=== PATIENT | female | born 2000 | race Caucasian/White ===

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

== ENCOUNTER → 2020-01-05 08:03 | Outpatient (BNVA) | payer MEDICAID, SELFPAY | PROVIDERS: PCP Nurse Practitioner Family; Visit Provider Obstetrics & Gynecology | DX: O24.919 Unspecified diabetes mellitus in pregnancy, unspecified trimester (principal) | CPT/HCPCS: 76816; 76819; 81000 ==

== ENCOUNTER → 2020-01-12 13:39 | Outpatient (BNVA) | payer MEDICAID, SELFPAY | PROVIDERS: PCP Nurse Practitioner Family; Visit Provider Obstetrics & Gynecology | DX: O24.419 Gestational diabetes mellitus in pregnancy, unspecified control (principal) | CPT/HCPCS: 81000 ==

== ENCOUNTER → 2020-01-19 09:36 | Outpatient (BNVA) | payer MEDICAID, SELFPAY | PROVIDERS: PCP Nurse Practitioner Family; Visit Provider Obstetrics & Gynecology | DX: O09.893 Supervision of other high risk pregnancies, third trimester (principal); A74.9 Chlamydial infection, unspecified; O98.813 Other maternal infectious and parasitic diseases complicating pregnancy, third trimester; N89.8 Other specified noninflammatory disorders of vagina | CPT/HCPCS: 83986; 84315; 87081; 87210; 87491; 87591 ==

== ENCOUNTER 2020-01-23 19:08 | Outpatient (CLI) | payer MEDICAID, SELFPAY ==
[2020-01-23 19:20] VITALS: RESP 16; TEMP 37.2
[2020-01-23 19:24] VITALS: BP 148/70; PULSE 116
[2020-01-23 19:30] VITALS: BMI 28.7
[2020-01-23 20:45] VITALS: BP 136/85; PULSE 79
[2020-01-23 23:48] VITALS: RESP 16
[2020-01-23] MEDS: morphine 4 mg/mL SDV 1 mL 8 MG IM (23:48)
[2020-01-23] MEDS: promethazine 25 mg/mL SDV 1 mL IM (23:49)
[2020-01-24 07:00] VITALS: RESP 16; TEMP 36.7
[2020-01-24 07:57] VITALS: RESP 18; TEMP 37.1
[2020-01-24 08:00] VITALS: RESP 18; TEMP 36.7
== END 2020-01-24 07:56 | disposition home or self-care (01) ==
LOC: OPOB 19:09 → OBGYN 19:11
PROVIDERS: PCP Nurse Practitioner Family; Visit Provider Obstetrics & Gynecology
DX: O26.899 Other specified pregnancy related conditions, unspecified trimester (principal); Z3A.00 Weeks of gestation of pregnancy not specified; R10.9 Unspecified abdominal pain
CPT/HCPCS: 59025; 96372; 99211; J2270; J2550

== ENCOUNTER 2020-01-29 14:08 | Outpatient (CLI) | payer MEDICAID, SELFPAY ==
--- NOTE | 2020-01-29 | US_ITS ---
UMBILICAL ARTERY DOPPLER UMBILICAL ARTERY DOPPLER Waveform analysis: Normal systolic and diastolic velocities. Diastolic velocity remains above the baseline. SD ratios: SD ratios range from 2.3-3.5. For this age 3.5 ratio is elevated. The diastolic velocity is still present but it does descend close to baseline. The highest SD ratio is in the mid cord within a free floating loop. At the placental attachment of the cord there is slight rounding of the waveform. Resistivity indices: 0.65-0.71 WS: [id number] BIOPHYSICAL PROFILE AMNIOTIC FLUID HISTORY: Gestational DM. COMPARISON: 01/27/2020 Cardiac activity: 160 bpm. Cervix: Not visualized. Placenta: Posterior, no previa or abruption. Placenta grade: 2 Parameters are as follows: Breathin Movement: 2 Tone: 2 Fluid volume: 2 Amniotic fluid index: 12.7 cm. Largest vertical pocket is 4.2 cm. US/[place] OB BPP [place] NST 07150 IMPRESSION: 1. Biophysical profile score: 8/8. 2. Normal amniotic fluid index. [facility] US/US OB BPP wo NST 30599 IMPRESSION: ADDENDUM: 01/29/20 1531 Impression: SD ratio is elevated in the free floating loop of cord with the diastolic veloc ity remaining above baseline. Recommend 24 to 48 hour reevaluation of the umbil ical cord. ADDENDUM: 01/30/20 0712 Impression: SD ratio is elevated in the free floating loop of cord with the diastolic veloc ity remaining above baseline. Recommend 24 to 48 hour reevaluation of the umbil ical cord.
[2020-01-29 14:20] VITALS: RESP 18; TEMP 36.7
--- NOTE | 2020-01-29 14:20 | US_ITS ---
WS: [id number] BIOPHYSICAL PROFILE AMNIOTIC FLUID HISTORY: Gestational DM. COMPARISON: 01/27/2020 Cardiac activity: 160 bpm. Cervix: Not visualized. Placenta: Posterior, no previa or abruption. Placenta grade: 2 Parameters are as follows: Breathin Movement: 2 Tone: 2 Fluid volume: 2 Amniotic fluid index: 12.7 cm. Largest vertical pocket is 4.2 cm. 1. Biophysical profile score: 8/8. 2. Normal amniotic fluid index.
[2020-01-29 14:29] VITALS: BP 118/72; PULSE 90
[2020-01-29 14:31] VITALS: BMI 29.7
[2020-01-29 14:59] VITALS: BP 123/75; PULSE 90
[2020-01-29 15:29] VITALS: BP 124/74; PULSE 79
[2020-01-29 15:58] VITALS: BP 132/84; PULSE 92
--- NOTE | 2020-01-29 16:54 | P.PCN_ITS ---
NST (Non-Stress Test) NST : 3 Due date: 02/21/20 Gestational age (weeks): 36 Indications: Insulin controlled gestational diabetes in third trimester at 36- 5/7 weeks gestation Test: NST Time: 15:09 Length of test in Minutes: 67 Contractions: Every 6 to 7 minutes Interpretation/Plan Interpretation by: Miller Guardado Comments: Baseline heart rate: 130-140. Moderate variability. No decelerations. Accelerations present. Reactive NST. Contractions every 6 to 7 minutes.
== END 2020-01-29 16:20 | disposition home or self-care (01) ==
LOC: OPOB 14:10
PROVIDERS: PCP Nurse Practitioner Family; Visit Provider Obstetrics & Gynecology
DX: O24.419 Gestational diabetes mellitus in pregnancy, unspecified control (principal); Z3A.00 Weeks of gestation of pregnancy not specified
CPT/HCPCS: 12345; 59025; 76816; 76819; 76820; 81000

== ENCOUNTER 2020-02-02 15:51 | Outpatient (CLI) | payer MEDICAID, SELFPAY ==
[2020-02-02] VITALS (7 sets, daily range): BP systolic 104–116; BP diastolic 64–75; PULSE 83–93; RESP 18; TEMP 37; BMI 29.5
--- NOTE | 2020-02-02 16:11 | US_ITS ---
WS: [id number] US OB BPP wo NST 23182 REASON FOR EXAM: GDM FINDINGS: Single fetus in the cephalic presentation heart rate 138 bpm all 4 chambers are seen. The amniotic fluid indices normal. Biophysical profile 04/10. Posterior placenta The cervix not well seen today. US/US OB BPP wo NST 10879 IMPRESSION: Biophysical profile 04/10 Cephalic presentation Posterior placenta.
--- NOTE | 2020-02-02 16:26 | PC.NURSE ---
ULTRASOUND AT BEDSIDE PREFORMING BPP.
--- NOTE | 2020-02-02 17:33 | P.PCN_ITS ---
Procedure/Consent Procedure Narrative: NONSTRESS TEST: Place of test: [facility] [place]-L&D Indication: 19-year-old 1 para 0 at 37 weeks and 2 days, gestational diabetic Date and time of test: 02/02/2020, 5:15 PM Baseline: 135 Variability: Moderate variability Accelerations: Present Decelerations: None Tocometry: 2 contractions INTERPRETATION: NST reactive, continue kick counts
== END 2020-02-02 17:35 | disposition home or self-care (01) ==
LOC: OPOB 15:54 → OBGYN 15:54
PROVIDERS: PCP Nurse Practitioner Family; Visit Provider Obstetrics & Gynecology
DX: O24.419 Gestational diabetes mellitus in pregnancy, unspecified control (principal); Z3A.00 Weeks of gestation of pregnancy not specified
CPT/HCPCS: 12345; 59025; 76819; 81000; 99211

== ENCOUNTER 2020-02-05 13:22 | Outpatient (CLI) | payer MEDICAID, SELFPAY ==
[2020-02-05 13:43] VITALS: BP 125/63; PULSE 98
[2020-02-05 13:44] VITALS: RESP 16; TEMP 36.9
--- NOTE | 2020-02-05 13:44 | US_ITS ---
WS: [id number] US OB BPP wo NST 47475 REASON FOR EXAM: gestational diabetes FINDINGS: Comparison to 02/02/2020 Cephalic presentation. heart rate 147 beats for minute. Normal breathing, movement, tone, and amniotic fluid indices biophysical profile to day 04/10. US/US OB lm w fetalBPP woNST &umb IMPRESSION: Biophysical profile 04/10
[2020-02-05 14:07] LABS: Nitrazine Paper, PH Negative
[2020-02-05 14:18] VITALS: BP 125/68; PULSE 91
[2020-02-05 14:33] VITALS: BP 122/68; PULSE 105
[2020-02-05 14:38] VITALS: BMI 29.9
[2020-02-05 14:45] VITALS: BP 122/68; PULSE 105
--- NOTE | 2020-02-05 16:47 | PM.ACPR ---
NST (Non-Stress Test) NST : 3 Para: 0 (0020) Due date: 02/21/20 Gestational age (weeks): 37 Indications: Insulin requiring gestational diabetes in third trimester at 37-5/7 weeks gestation Test: NST Time: 13:44 Length of test in Minutes: 39 Contractions: None Fetus Fetus 1: Baseline FHR BMP:: 145 Variability: Moderate Accelerations: Present Decelerations: None Reacticity: Reactive Interpretation/Plan Interpretation by: Miller Guardado Comments: Reactive NST. Biophysical profile pending.
== END 2020-02-05 14:45 | disposition home or self-care (01) ==
LOC: OPOB 13:33 → OBGYN 13:33
PROVIDERS: PCP Nurse Practitioner Family; Visit Provider Obstetrics & Gynecology
DX: O24.419 Gestational diabetes mellitus in pregnancy, unspecified control (principal); Z3A.37 37 weeks gestation of pregnancy
CPT/HCPCS: 12345; 59025; 76815; 76819; 76820; 83986; 99211

== ENCOUNTER 2020-02-12 06:38 | Outpatient (CLI) | payer MEDICAID, SELFPAY ==
[2020-02-12 06:55] VITALS: BMI 29.9
[2020-02-12 08:42] VITALS: BP 142/81; PULSE 86
[2020-02-12 09:05] VITALS: BP 142/81; PULSE 86; RESP 18; TEMP 36.7
== END 2020-02-12 09:15 | disposition home or self-care (01) ==
PROVIDERS: PCP Nurse Practitioner Family; Visit Provider Obstetrics & Gynecology
DX: O26.899 Other specified pregnancy related conditions, unspecified trimester (principal); Z3A.00 Weeks of gestation of pregnancy not specified; R10.9 Unspecified abdominal pain
CPT/HCPCS: 59025; 99211

== ENCOUNTER 2020-02-13 13:10 | Outpatient (CLI) | payer MEDICAID, SELFPAY ==
[2020-02-13] VITALS (8 sets, daily range): BP systolic 0–152; BP diastolic 0–94; PULSE 83–98; RESP 18; TEMP 36.7; BMI 29.2
[2020-02-13 14:10] LABS: Glucose Point of Care 78 mg/dL (70-110)
[2020-02-13 14:43] LABS: Add Urine Culture? No; Bacteria Urine TRACE; Bilirubin Urine Neg (NEGATIVE); Blood Urine Neg (Negative); Glucose Urine UA Norm (Normal); Ketones Urine Negative (Negative); Leukocyte Esterase Urine Negative (Negative); Mucus Urine 3+; Nitrate Urine Negative (Negative); Protein Urine Neg (Negative); Squamous Epithelial Cell Urine 0-4 (0-5); Urine Appearance Clear (CLEAR); Urine Color Yellow (Yellow); Urobilinogen Urine 1 mg/dL (Negative); WBC Urine 0-4 /hpf (0-5); pH Urine 7 (5-7)
[2020-02-13 14:56] LABS: Urine Creatinine 169 mg/dL (28-217); Urine Protein Random 20 mg/dL
[2020-02-13 15:02] LABS: UPRO/UCREAT Ratio 0.12 mg/mg CR
[2020-02-13] MEDS: promethazine 25 mg Tablet PO (15:32)
[2020-02-13] MEDS: HYDROcodone-acetaminophen 5-325 mg Tablet 2 TAB PO (15:32)
== END 2020-02-13 15:35 | disposition home or self-care (01) ==
LOC: OPOB 13:21 → OBGYN 02-16 08:40
PROVIDERS: PCP Nurse Practitioner Family; Visit Provider Obstetrics & Gynecology
DX: O26.899 Other specified pregnancy related conditions, unspecified trimester (principal); Z3A.00 Weeks of gestation of pregnancy not specified; R10.9 Unspecified abdominal pain
CPT/HCPCS: 36416; 59025; 81001; 82570; 82962; 84156; 99211; Q0169

== ENCOUNTER 2020-02-14 09:30 | Inpatient (IN) | payer MEDICAID, SELFPAY ==
[2020-02-14] VITALS (77 sets, daily range): BP systolic 0–157; BP diastolic 0–107; PULSE 94–130; RESP 16–20; TEMP 36.6–37.2; O2SAT 94–98; BMI 29.2
[2020-02-14 09:47] LABS: Glucose Point of Care 105 mg/dL (70-110)
[2020-02-14] MEDS: dextrose 5%-lactated ringers 1,000 ML 125 ML IV ×2 (09:54→17:59)
[2020-02-14] MEDS: famotidine 20 mg/2 mL INJ IVP (09:55)
[2020-02-14 10:03] LABS: Basophils % 0.2 %; Eosinophils % 0.1 %; Hematocrit 37.1 % (37.0-47.0); Hemoglobin 12.4 g/dL (11.5-15.3); Lymphocytes # 2.3 10^3/uL (1.5-6.5); Lymphocytes % 12.4 %; Mean Corpuscular HGB Conc 33.4 g/dL (30.0-36.0); Mean Corpuscular Hemoglobin 29.5 pg (28.0-34.0); Mean Corpuscular Volume 88.3 fL (81-99); Mean Platelet Volume 11.2 fL (7.4-10.4); Monocytes # 0.9 10^3/uL (0.2-0.9); Monocytes % 5.1 %; Neutrophils % 81.7 %; Nucleated Red Blood Cells % 0 %; Platelet Count 286 10^3/cmm (130-400); Red Cell Distribution Width 12.1 % (12.1-15.1); White Blood Count 18.4 10^3/uL (4.5-13.0)
[2020-02-14 10:10] LABS: Amphetamines Screen Urine Negative (Negative); Barbiturates Screen Urine Negative (Negative); Benzodiazepines Screen Urine Negative (Negative); Cocaine Screen Urine Negative (Negative); Opiate Screen Urine Positive (Negative); PCP Screen Urine Negative (Negative); THC Screen Urine Negative (Negative)
[2020-02-14 10:37] LABS: Glucose Point of Care 104 mg/dL (70-110)
[2020-02-14] MEDS: lactated ringers 1,000 ML 999 ML IV ×2 (10:49→12:01)
--- NOTE | 2020-02-14 12:11 | ANES.PREANE2 ---
Pre-Anesthetic Assessment Pre-Anesthetic Assessment: Height/Weight: Height 1.52 m Weight 68.039 kg Temp Pulse Resp BP Pulse Ox 97.9 F 104 H 18 133/68 98 02/14/20 09:28 02/14/20 12:08 02/14/20 09:28 02/14/20 12:08 02/14/20 12:06 Preop Diagnosis: labor Pain Proposed Procedure: DONALD Was Beta Rigo taken within 24 hours: N/A Last Intake: 05:00 Social: Social History: No alcohol and No tobacco Exam: Pre-Anes Outpt Exam: alert, oriented x 3, clear to auscultation bilaterally and regular rate & rhythm Airway: Submandibular: WNL Cervical ROM: WNL MP: 2 Dentition: Full History/ROS: No significant history except as noted and No significant complaints Pulmonary: Pulmonary: None reported CV/HEM: CV/HEM: None reported : : None reported Hepatic: Comments: Hep C + GI: GI: None reported Metabolic: Metabolic: DM (Gestational) Musc/skel: Musc/skel: None reported Neuropsych: Neuropsych: None reported Anesthetic Plan: ASA status: 2 Anesthesia: Anesthesia Evaluation and Regional (specify below) Other: DONALD Risk of > 500 ml blood loss (7ml/kg in children): No Meds/Allergies Current Medications: Current Medications Generic Name Dose Route Start Last Admin Trade Name Freq PRN Reason Stop Dose Admin Famotidine 20 mg 02/14/20 09:30 02/14/20 09:55 Pepcid Inj IVP 20 mg Q12H MARISOL Administration Dextrose/Lactated Ringer's 1,000 mls @ 125 m ls/hr 02/14/20 09:30 02/14/20 10:49 Dextrose 5%-Lact ated Ringers IV 0 mls/hr .Q8H MARISOL Infusion PFSH Anesthesia PFSH: Medical History Hepatitis C antibody positive in blood hep c pcr-- below level of detection No pertinent past medical history Denies diabetes, asthma, hypertension, seizures, DVT/PE Surgical History History of tonsillectomy (~2004) Family History Family/Other Down syndrome Paternal uncle Autism Paternal uncle Social History Smoking and tobacco status: former smoker Quit status (tobacco): has quit using tobacco Year quit tobacco: 2019; was smoking 1/2 ppd Former quit date comment: started smoking at age 11; quit smoking 1 week prior to Alcohol intake: never Additional social history: Well balanced diet Female Reproductive History: Date of last menstrual period: 05/17/19 : 3 Data Anesthesia CBC & Chem 7: 02/14/20 09:35 Other Labs: Laboratory Results - last 48 hr 02/14/20 02/14/20 02/14/20 09:15 09:32 09:35 WBC 18.4 H RBC 4.20 Hgb 12.4 Hct 37.1 MCV 88.3 MCH 29.5 MCHC 33.4 RDW 12.1 Plt Count 286 MPV 11.2 H Neut % (Auto) 81.7 Lymph % (Auto) 12.4 Sauk % (Auto) 5.1 Eos % (Auto) 0.1 Baso % (Auto) 0.2 Neut # (Auto) 15.0 H Lymph # (Auto) 2.3 Sauk # (Auto) 0.9 Eos # (Auto) 0.0 Baso # (Auto) 0.0 Nucleated RBC % (auto) 0 Nucleated RBCs # 0.0 POC Glucose 105 Urine Opiates Screen Positive H Ur Barbiturates Screen Negative Ur Phencyclidine Scrn Negative Ur Amphetamines Screen Negative U Benzodiazepines Scrn Negative Urine Cocaine Screen Negative U Marijuana (THC) Screen Negative 02/14/20 10:34 WBC RBC Hgb Hct MCV MCH MCHC RDW Plt Count MPV Neut % (Auto) Lymph % (Auto) Sauk % (Auto) Eos % (Auto) Baso % (Auto) Neut # (Auto) Lymph # (Auto) Sau[place] # (Auto) Eos # (Auto) Baso # (Auto) Nucleated RBC % (auto) Nucleated RBCs # POC Glucose 104 Urine Opiates Screen Ur Barbiturates Screen Ur Phencyclidine Scrn Ur Amphetamines Screen U Benzodiazepines Scrn Urine Cocaine Screen U Marijuana (THC) Screen Cardiac Studies: No Data to Display
--- NOTE | 2020-02-14 12:13 | ANES.PROC ---
Anesthesia Procedures Procedure/Date: 02/14/20 Epidural: Time Out Performed: Yes Consents Signed: Procedure Consent Consent: requested by attending/covering physician, from patient, risks and benefits reviewed and patient agrees to proceed Lumbar Level: L3-L4 Epidural position: sitting Epidural procedure: sterile prep of area, 1% lidocaine to numb the area, 18 g needle, neg for paresthesia, test dose given, 1.5% xylocaine 1:200k epi, 0.2% Ropivacaine bolus ml, placed PCEA, no systemic response, sterile dressing applied, L.U.D. no apparent complications and 0.2% Ropiavacaine @ mls/hr Additional Comments: Test dose -. FLORESITA at 6 cm. Ropiv 0.2 % 6cc and Fent 100ucg bolus. epid infusion started at 11cc/hour
[2020-02-14 12:51] LABS: Glucose Point of Care 106 mg/dL (70-110)
[2020-02-14] MEDS: oxytocin 30 UNIT/500 ML BAG IV (14:22)
[2020-02-14 15:43] LABS: Glucose Point of Care 110 mg/dL (70-110)
[2020-02-14] MEDS: acetaminophen 325 mg Tablet 650 MG PO (16:04)
[2020-02-14 17:37] LABS: Glucose Point of Care 97 mg/dL (70-110)
--- NOTE | 2020-02-14 19:22 | PM.DELIVERY ---
Delivery Note: Date of delivery: February 14, 2020 Pre-delivery diagnoses: 1. at 39-0/7 weeks gestation 2. Insulin controlled gestational diabetes in third trimester Post-delivery diagnoses: 1. at 39-0/7 weeks gestation - delivered 2. Insulin controlled gestational diabetes - delivered. 3. Viable female infant. Procedure: Spontaneous vaginal delivery Op report anesthesia: Epidural Delivering Physician: Dr. Miller Guardado Estimated blood loss (mL): 150 Pre-Delivery Course: Patient is a 19-year-old white female 3, para 0-0-2-0 with an LMP of 05/17/2019 and an EDC of 02/21/2020 based on LMP and consistent with a 19-week ultrasound, which placed her at 39-0/7 weeks gestation today. She presented to labor and delivery at 08:47 on 02/14/2020 with complaint of contractions. She had been in and out multiple times this week with contractions. On presentation today she was noted to be 2 to 3 cm dilated and 90% effaced. She was krzysztof regularly and had been noticing some spotting. She was rating her contractions essentially a 10 out of 10. She was monitored for 1-1/2 to 2 hours but made no change. However because of her gestational diabetes on insulin and being at 39 weeks decision was made to go ahead and keep her and then induce/augment labor if things did not progress on their own. She was admitted to labor and delivery. She had epidural placed. She is continued to contract initially and had made some slow change. Following epidural, however, contractions slowed and Pitocin augmentation was started. Following this, she had spontaneous rupture of membranes at 14:55 with clear fluid. She was 90% effaced and 4 cm dilated at that time. She started progressing and was found to be completely dilated by 17:40. Sugar checks were performed and she was within the expected range for labor. Delivery: She started pushing at 17:54 and delivered at 18:54 as a spontaneous vaginal delivery of an occiput anterior female infant over an intact perineum under epidural anesthesia. Following delivery of the 's head, no nuchal cords were noted. The rest of the delivered atraumatically. Nose and mouth were suctioned with bulb suction. Infant was placed on the mother's abdomen where the cord was clamped and then cut by the father of the baby. Baby was spontaneously crying. It was left in the care of the waiting nurses. Cord blood was obtained. Pitocin bolus was started. Placenta delivered intact by simple expression at 18:59. Cervix and vagina were palpated and noted to be intact. Labia were inspected and noted to be intact except for superficial bilateral periurethral lacerations which required no repair. FINDINGS 1. Viable female infant weighing 6 lbs 15 oz (3160 g) with a length of 20-1/2 inches and Apgars of 7 at 1 minute and 9 at 5 minutes. 2. Three-vessel cord with no loops of nuchal cord noted. 3. Normal-appearing placenta with an eccentric cord insertion. Post-Delivery Status: Mother and infant were left to recover in satisfactory condition. A&P Assessment and plan (1) Gestational diabetes mellitus, delivered, current hospitalization: Status: Acute (2) Term of female: Status: Acute Coding Level of Care Code Acute Traffic Attendant for Chg Fwd Diagnoses Gestational diabetes mellitus, delivered, current hospitalization O24.429 Term of female Z37.0
[2020-02-15 01:00] VITALS: BP 129/87; PULSE 98; RESP 16
[2020-02-15 03:30] VITALS: BP 144/94; PULSE 87; RESP 17
[2020-02-15 07:48] LABS: Hematocrit 33.7 % (37.0-47.0); Mean Corpuscular HGB Conc 32.6 g/dL (30.0-36.0); Mean Corpuscular Hemoglobin 29.6 pg (28.0-34.0); Mean Corpuscular Volume 90.8 fL (81-99); Mean Platelet Volume 10.7 fL (7.4-10.4); Platelet Count 232 10^3/cmm (130-400); Red Blood Count 3.71 10^6/uL (4.1-5.3); Red Cell Distribution Width 12.1 % (12.1-15.1); White Blood Count 14.1 10^3/uL (4.5-13.0)
[2020-02-15 08:10] VITALS: BP 114/74; PULSE 83; RESP 14; TEMP 36.7
[2020-02-15] MEDS: docusate sodium 100 mg Capsule PO ×2 (08:11→17:51)
[2020-02-15] MEDS: prenatal vitamin Capsule 1 CAP PO (08:11)
[2020-02-15] MEDS: benzocaine-menthol 78 gm Canister 1 SPRAY TOPICAL (08:11)
[2020-02-15] MEDS: lanolin oint 7 gm 1 APPLIC TOPICAL (08:11)
[2020-02-15 13:17] VITALS: BP 119/82; PULSE 90; RESP 16
--- NOTE | 2020-02-15 17:13 | PM.DCS ---
Discharge Providers Date of Admission: 02/14/20 09:30 Date of Discharge: February 15, 2020 Attending Provider at Admission: Miller Guardado MD Attending Provider at Discharge: Miller Guardado MD Primary Care Provider: CATY Downey Diagnoses at Discharge Discharge Diagnosis (1) Gestational diabetes mellitus, delivered, current hospitalization: Status: Acute (2) Term of female: Status: Acute Reason for Visit Reason for Visit: contractions Hospital Course Hospital Course: Patient is a 19-year-old white female 3, para 0-0-2-0 with an LMP of 05/17/2019 and an EDC of 02/21/2020 based on LMP and consistent with a 19-week ultrasound, which placed her at 39-0/7 weeks gestation at the time of admission. Her has been complicated by insulin requiring gestational diabetes. She presented to L&D on 02/14/2020 at 08:47 with complaint of contractions. She was noted to be 2 to 3 cm dilated and was krzysztof regularly with some spotting present. She was initially monitored for approximately an hour and a half with no significant cervical change. However since she had been in multiple times over the last week, was now 39 weeks with gestational diabetes, decision was made to go ahead and keep her and induce labor if she did not progress into labor on her own. She became more uncomfortable and had epidural placed. Contractions continued and she made slow cervical change through the morning. At 14:55 she had spontaneous rupture of membranes with clear fluid. She was 4 cm dilated at that time. She started progressing following this and was completely dilated by 17:40. She started pushing at 17:54 and delivered at 18:54 as a spontaneous vaginal delivery of an occiput anterior female infant over an intact perineum. Baby weighed 6 pounds 15 ounces (3160 g) with a length of 20-1/2 inches and Apgars of 7 at 1 minute and 9 at 5 minutes. Mother and baby both did well following delivery. DAY 1 Patient reports doing well at this time. She stated that her pain is been well controlled. She denied lightheadedness or dizziness with ambulation. She denied shortness of breath or chest pains. She denied nausea or vomiting and was tolerating a regular diet. She denied any problems with urination. She stated that her bleeding had slowed. She is breast-feeding. She would like to be released to home today. Physical Exam: See below. Plan: Discussed with patient that she did not need to check sugars at home and was to stop her insulin. She has not been on it since delivery. Discussed with her that she will need testing done at approximately 6 weeks after delivery. Discharge to home. Discharge instructions discussed with patient. Patient to follow-up in the office in 6 weeks for exam and diabetes testing. Physical Exam Const: COMMON NORMALS: no acute distress, average body habitus, alert and well nourished GENERAL APPEARANCE: well developed ORIENTATION/CONSCIOUSNESS: Yes oriented to person, Yes oriented to place and Yes oriented to time Resp: COMMON NORMALS: normal respiratory effort and clear to auscultation bilaterally AUSCULTATION: clear to auscultation bilaterally Cardio: COMMON NORMALS: regular rate, regular rhythm, No gallops present (Cardio), No murmurs present (Cardio) and No rub (Cardio) RATE: regular rate RHYTHM: regular rhythm GI: COMMON NORMALS: Soft to palpation, non-tender, No hepatosplenomegaly present and no masses (Except for firm, nontender uterus, approximately 2 fingerbreadths below umbilicus.) AUSCULTATION: Yes normoactive bowel sounds PALPATION: Yes Soft to palpation, Yes No hepatosplenomegaly present and No Hernia present : EXTERNAL FEMALE EXAM: No Hernia present Extremity: COMMON NORMALS: no calf tenderness Neuro: SENSORIUM/ORIENTATION: Yes alert, Yes oriented to person, Yes oriented to place and Yes oriented to time Psych: COMMON NORMALS: normal affect MOOD & AFFECT: Yes euthymic mood Discharge Data Data Completed and Pending: Labs from last 24 hours 02/15/20 02/14/20 07:30 16:52 WBC 14.1 H RBC 3.71 L Hgb 11.0 L Hct 33.7 L MCV 90.8 MCH 29.6 MCHC 32.6 RDW 12.1 Plt Count 232 MPV 10.7 H POC Glucose 97 Vitals: Last Vital Signs Temp 98.0 F 02/15/20 08:10 Pulse 90 02/15/20 13:17 Resp 16 02/15/20 13:17 BP 119/82 02/15/20 13:17 Pulse Ox 97 02/14/20 12:21 Discharge Plan Discharge Patient Disposition: Home, Self-Care Condition: Stable Prescriptions: Discontinued (DME) BD Insulin Syringe 1 mL 25 x 1 syringe See Rx Instructions .ROUTE .MEDSUPPLY Qty: 100 RF: 0 (DME) blood-glucose meter [Blood Glucose Monitoring] Kit See Rx Instructions .ROUTE .MEDSUPPLY Qty: 1 RF: 0 Levemir U-100 Insulin 100 unit/mL solution 6 unit SUBCUT DAILY RF: 0 Discharge Orders: Discharge Order (Routine); Ordered 02/15/20 Ordered By: Miller Guardado Referrals: Miller Guardado MD [Physician] - 6 Weeks ( exam and 75 g 2-hour glucose tolerance test (fasting)) Discharge Diet: Regular Discharge Activity: Resume usual activity Patient Instructions: Depression (GEN), Perineal Care (GEN), Your Baby (GEN), and the Working Mom (GEN), Expression, Collection and Storage of Breastmilk (GEN), How to Hold and Breastfeed Your Baby (GEN), and Nipple Soreness (GEN), Breast Fullness Versus Breast Engorgement (GEN), and Plugged Ducts (GEN), How to Increase Your Milk Supply (GEN), How to Tell if Your Baby is Getting Enough Breast Milk (GEN), and Your Diet (GEN), How Long Should I Breastfeed and How do I Wean? (GEN), Breast Care for the Breast Feeding Mother (GEN), OB Discharge Report, OB Food/Drug Interaction Guide, OB Vaginal Deliveries - [facility] Activity Restrictions/Additional Instructions: Recommend: 1. Take vitamins until at least 6 weeks . 2. May take ibuprofen 200 mg, 4 tablets 3 times a day as needed for pain. Discharge Attestations Time Spent in Discharge Care*: less than 30 min Quality Metrics Clinical Quality Measures During this hospital stay, did patient experience: None Coding Level of Care Code Acute Research Scientist for Chg Fwd Diagnoses Gestational diabetes mellitus, delivered, current hospitalization O24.429 Term of female Z37.0
[2020-02-15 17:23] VITALS: BP 128/82; PULSE 80; RESP 16
[2020-02-15 19:07] VITALS: BP 128/82; PULSE 80; RESP 16
== END 2020-02-15 19:30 | disposition home or self-care (01) | DRG 807 ==
LOC: OPOB 02-16 08:44
PROVIDERS: Admitting Provider Obstetrics & Gynecology; PCP Nurse Practitioner Family; Visit Provider Obstetrics & Gynecology
DX: O24.424 Gestational diabetes mellitus in childbirth, insulin controlled (principal); Z37.0 Single live birth; Z3A.39 39 weeks gestation of pregnancy; Z87.891 Personal history of nicotine dependence
CPT/HCPCS: 12345; 36415; 36416; 51702; 59025; 59409; 80306; 82962; 83986; 85025; 85027; 96374; 96375; 99211; J2795; J3010; J3490

== ENCOUNTER → 2020-03-29 08:05 | Outpatient (BNVA) | payer MEDICAID, SELFPAY | PROVIDERS: PCP Nurse Practitioner Family; Visit Provider Obstetrics & Gynecology | DX: O24.429 Gestational diabetes mellitus in childbirth, unspecified control (principal); N89.8 Other specified noninflammatory disorders of vagina | CPT/HCPCS: 82947; 87210 ==

== ENCOUNTER 2020-08-18 07:49 | Observation (INO) | payer MEDICAID, SELFPAY ==
[2020-08-18] VITALS (23 sets, daily range): BP systolic 101–138; BP diastolic 70–87; PULSE 92–128; RESP 16–18; TEMP 36.1–37.2; O2SAT 94–100; BMI 29.2
--- NOTE | 2020-08-18 08:28 | W.ED.ABDPA2 ---
Documented by User: KAELA Jett 08/18/20 15:16 HPI - Abdominal Pain General: Chief Complaint: Abdominal Pain Stated Complaint: ABD pain on right side Time Seen by Provider: 08/18/20 08:21 History of Present Illness: HPI narrative: Patient is a 19-year-old female comes in the ED with abdominal pain. Symptoms started about 3 days ago. She says her pain is in the right lower quadrant and she rates it an 8 out of 10. She also has had nausea and diarrhea for the past 3 days. She endorses a decreased appetite. Last night she has she had a fever. Patient delivered a baby in February 2020. She is currently breast-feeding. Denies any vomiting, chest pain, shortness of breath, constipation, dysuria or hematuria. Associated Symptoms: Reports diarrhea and nausea; Denies chills, constipation, dysuria, fever(s), hematochezia, hematuria and vomiting Related Data: Date of Last Menstrual Period: 05/17/19 Review of Systems Const: Denies: fever(s), chills or fatigue Eyes: Denies: change in vision or eye discomfort ENMT: Denies: throat pain, odynophagia, nasal discharge or nasal congestion Card: Denies: chest pain, palpitations, edema, swelling of feet/ankles, dyspnea on exertion or orthopnea Resp: Denies: dyspnea, productive cough or non-productive cough GI: Reports: abdominal pain, nausea and diarrhea; Denies: vomiting, constipation or hematochezia : Denies: flank pain, dysuria or hematuria Musc: Denies: neck pain, back pain or extremity swelling Skin/Breast: Denies: rash or new lesions Neuro: Denies: headache(s), numbness in extremities or weakness in extremities PFSH ED PFSH: Medical History Hepatitis C antibody positive in blood hep c pcr-- below level of detection History of gestational diabetes Had GDM in third in 2019 Surgical History History of tonsillectomy (~2005) Family History Family/Other Down syndrome Paternal uncle Autism Paternal uncle Social History Smoking and tobacco status: former smoker Quit status (tobacco): has quit using tobacco Year quit tobacco: 2019; was smoking 1/2 ppd Former quit date comment: started smoking at age 11; quit smoking 1 week prior to Alcohol intake: never Additional social history: Well balanced diet Female Reproductive History: Date of last menstrual period: 05/17/19 Physical Exam Const: COMMON NORMALS: no acute distress, patient oriented x3, healthy appearing and alert GENERAL APPEARANCE: cooperative and comfortable HENMT: COMMON NORMALS: normocephalic HEAD & SCALP: normocephalic MOUTH: Normal oral and palatal mucosa present THROAT: posterior oropharynx normal and uvula midline Eye: COMMON NORMALS: Equal, round and reactive pupils present PUPIL: Yes Equal, round and reactive pupils present Neck/C-Spine: COMMON NORMALS: supple GENERAL: Yes normal visual inspection Resp: COMMON NORMALS: normal respiratory effort, No retractions, No use of accessory muscles and clear to auscultation bilaterally AUSCULTATION: clear to auscultation bilaterally Cardio: COMMON NORMALS: regular rate, regular rhythm, S1 normal heart sound present, S2 normal heart sound present, No gallops present (Cardio), No clicks present (Cardio), No murmurs present (Cardio) and Peripheral pulses 2+ throughout RATE: regular rate RHYTHM: regular rhythm HEART SOUNDS: S1 normal heart sound present and S2 normal heart sound present PERIPHERAL PULSES: Peripheral pulses 2+ throughout GI: COMMON NORMALS: Normal to inspection, nondistended, normoactive bowel sounds present, Soft to palpation and no masses PALPATION: Yes Soft to palpation and Yes Tenderness to palpation present (GI) Details: RLQ (Positive McBurney's point, positive Rovsing sign) : COMMON NORMALS: Yes no CVA tenderness BLADDER/KIDNEY EXAM: Yes no CVA tenderness Back/Pelvis: COMMON NORMALS: no CVA tenderness Extremity: COMMON NORMALS: normal to inspection and no pedal edema Neuro: COMMON NORMALS: patient oriented x3 SENSORIUM/ORIENTATION: Yes alert GAIT: Yes Normal gait present Skin: GENERAL SKIN EXAM: dry skin Course Reevaluation(s): Reevaluation #1: I went to check on patient and discuss her lab results. I asked her about her pain and she says that it is increasing. I told her that I can order some more morphine and she did not want any morphine or any other pain meds right now. Time: 10:43 Vital Signs: Vital signs: Vital Signs Temperature 98.6 F 08/18/20 12:09 Pulse Rate 104 H 08/18/20 15:01 Respiratory Rate 17 08/18/20 15:01 Blood Pressure 118/82 08/18/20 15:01 Pulse Oximetry 98 08/18/20 15:01 MDM - Abdominal Pain Lab Data: Attestation: I reviewed the patient's lab results. Labs: Lab Results 08/18/20 08/18/20 08/18/20 Range/Units 08:22 08:22 08:22 WBC 12.6 (4.5-13.0) 10^3/ uL RBC 5.17 (4.1-5.3) 10^6/u L Hgb 14.6 (11.5-15.3) g/dL Hct 44.7 (37.0-47.0) % MCV 86.5 (81-99) fL MCH 28.2 (28.0-34.0) pg MCHC 32.7 (30.0-36.0) g/dL RDW 12.4 (12.1-15.1) % Plt Count 248 (130-400) 10^3/c mm MPV 9.6 (7.4-10.4) fL Neut % (Auto) 69.7 % Lymph % (Auto) 20.0 % [place] % (Auto) 8.2 % Eos % (Auto) 1.5 % Baso % (Auto) 0.4 % Neut # (Auto) 8.79 H (1.8-8.0) 10^3/u L Lymph # (Auto) 2.5 (1.5-6.5) 10^3/u L [place] # (Auto) 1.0 H (0.2-0.9) 10^3/u L Eos # (Auto) 0.2 (0.0-0.8) 10^3/u L Baso # (Auto) 0.1 (0.0-0.1) 10^3/u L Nucleated RBC % (a uto) 0 % Nucleated RBCs # 0.0 /100WBC Sodium 138 (136-145) mmol/L Potassium 4.0 (3.5-5.1) mmol/L Chloride 102 (98-107) mmol/L Carbon Dioxide 23 (22-29) mmol/L Anion Gap 17.0 (5-19) BUN 8 (6-20) mg/dL Creatinine 0.3 L (0.5-0.9) mg/dL GFR Calculation 286.6 H (90-130) mL/min Glucose 96 (65-115) mg/dL Calculated Osmolal ity 284 L (285-295) mOsm/k g Calcium 9.1 (8.5-10.5) mg/dL Total Bilirubin 0.4 (0.15-1.2) mg/dL AST 18 (0-32) U/L ALT 27 (0-33) U/L Alkaline Phosphata se 146 H (35-105) IU/L Total Protein 7.4 (6.6-8.7) g/dL Albumin 4.3 (3.5-5.2) g/dL Globulin 3.1 (1.3-4.6) g/dL HCG, Qual Negative (Negative) Urine Color (Yellow) Urine Appearance (CLEAR) Urine pH (5-7) Ur Specific Gravit y (1.005-1.030) Urine Protein (Negative) Urine Glucose (UA) (Normal) Urine Ketones (Negative) Urine Blood (Negative) Urine Nitrate (Negative) Urine Bilirubin (Negative) Urine Urobilinogen (Negative) mg/dL Ur Leukocyte Marylu ase (Negative) Urine RBC (0-2) /hpf Urine WBC (0-5) /hpf Ur Squamous Epith Cells (0-5) /hpf Amorphous Sediment Urine Bacteria (NONE) /hpf 12/16/20 Range/Units 08:27 WBC (4.5-13.0) 10^3/ uL RBC (4.1-5.3) 10^6/u L Hgb (11.5-15.3) g/dL Hct (37.0-47.0) % MCV (81-99) fL MCH (28.0-34.0) pg MCHC (30.0-36.0) g/dL RDW (12.1-15.1) % Plt Count (130-400) 10^3/c mm MPV (7.4-10.4) fL Neut % (Auto) % Lymph % (Auto) % [place] % (Auto) % Eos % (Auto) % Baso % (Auto) % Neut # (Auto) (1.8-8.0) 10^3/u L Lymph # (Auto) (1.5-6.5) 10^3/u L [place] # (Auto) (0.2-0.9) 10^3/u L Eos # (Auto) (0.0-0.8) 10^3/u L Baso # (Auto) (0.0-0.1) 10^3/u L Nucleated RBC % (a uto) % Nucleated RBCs # /100WBC Sodium (136-145) mmol/L Potassium (3.5-5.1) mmol/L Chloride (98-107) mmol/L Carbon Dioxide (22-29) mmol/L Anion Gap (5-19) BUN (6-20) mg/dL Creatinine (0.5-0.9) mg/dL GFR Calculation (90-130) mL/min Glucose (65-115) mg/dL Calculated Osmolal ity (285-295) mOsm/k g Calcium (8.5-10.5) mg/dL Total Bilirubin (0.15-1.2) mg/dL AST (0-32) U/L ALT (0-33) U/L Alkaline Phosphata se (35-105) IU/L Total Protein (6.6-8.7) g/dL Albumin (3.5-5.2) g/dL Globulin (1.3-4.6) g/dL HCG, Qual (Negative) Urine Color Yellow (Yellow) Urine Appearance Clear (CLEAR) Urine pH 6 (5-7) Ur Specific Gravit y 1.015 (1.005-1.030) Urine Protein Neg (Negative) Urine Glucose (UA) Norm (Normal) Urine Ketones Negative (Negative) Urine Blood Neg (Negative) Urine Nitrate Negative (Negative) Urine Bilirubin Neg (Negative) Urine Urobilinogen 4 H (Negative) mg/dL Ur Leukocyte Marylu ase Negative (Negative) Urine RBC None (0-2) /hpf Urine WBC None (0-5) /hpf Ur Squamous Epith Cells 0-4 H (0-5) /hpf Amorphous Sediment Not Reportable Urine Bacteria None (NONE) /hpf Imaging Data ^: CT Abd/Pel: Attestation: I personally reviewed and interpreted this imaging study as follows: Radiologist's impression: [facility] [address] [place] [address] CT Scan Report Signed Patient: Blanka Aponte Unit #: [id number] : 2000 Age/Sex: 19 / F ADM Date: 08/18/20 Loc: ER Room/Bed: Attending Dr: Ordering Provider/Ordering MD: Ever Mix Date of Service: 08/18/20 Procedure(s): CT abdomen pelvis w con* [id number] Accession Number(s): [id number] Report Number: [id number] WS: [id number] CT ABDOMEN AND PELVIS WITH CONTRAST HISTORY: RLQ pain with nausea and diarrhea TECHNIQUE: Imaging performed of the abdomen and pelvis with IV contrast. Single phase imaging of the abdomen. Coronal and sagittal reformats are submitted. All CT scans at [facility] use at least one of these dose optimization techniques: automated exposure control; mA and/or kV adjustment per patient size (includes targeted exams where dose is matched to clinical indication); or iterative reconstruction. IV CONTRAST: Omnipaque 300; 95 mL IV. Oral contrast: No DLP: 552.42 mGy.cm COMPARISON: 12/16/2016 Lower thorax: Lung bases are clear. Heart is normal size. No hiatal hernia. Liver/biliary system: Normal size with no intrahepatic dilatation. Gallbladder: Normal. No gallstones or wall thickening. No pericholecystic fluid. Pancreas: Normal. Spleen: Normal. Adrenal glands: Normal. Right kidney: Normal. Left kidney: Normal. Aorta: Normal. Lymphadenopathy: Small hyperemic lymph nodes in the RIGHT lower quadrant. Free fluid: None. GI tract: There is extensive inflammation in the RIGHT lower quadrant. The appendix is dilated measuring 12 mm and contains a central appendicolith. The edema extends to involve the distal small bowel. No obstruction at this time. Abdominal wall: Unremarkable abdominal wall. No hernia. Pelvis: Normal. Bones: Unremarkable. CT/CT abdomen pelvis w con* [id number] IMPRESSION: 1. Acute appendicitis. Significant amount of inflammation. At this time no perforation. 2. No abscess. Dictated By: Lisa Ervin DO Signed By: Lisa Ervin DO Signed Date/Time: 08/18/20 1059 DD/ 1055 Discharge Plan Discharge Patient Disposition: Admitted As Inpatient Coding Level of Care Code ED Worship Leader for Chg Fwd Exam Comprehensive Documented by User: Duarte Bolaños DO 08/18/20 12:06 HPI - Abdominal Pain General: Chief Complaint: Abdominal Pain Stated Complaint: ABD pain on right side Time Seen by Provider: 08/18/20 08:21 PFSH ED PFSH: Medical History Hepatitis C antibody positive in blood hep c pcr-- below level of detection History of gestational diabetes Had GDM in third in 2019 Surgical History History of tonsillectomy (~2005) Family History Family/Other Down syndrome Paternal uncle Autism Paternal uncle Social History Smoking and tobacco status: former smoker Quit status (tobacco): has quit using tobacco Year quit tobacco: 2019; was smoking 1/2 ppd Former quit date comment: started smoking at age 11; quit smoking 1 week prior to Alcohol intake: never Additional social history: Well balanced diet Course Vital Signs: Vital signs: Vital Signs Temperature 98.6 F 08/18/20 12:09 Pulse Rate 104 H 08/18/20 15:01 Respiratory Rate 17 08/18/20 15:01 Blood Pressure 118/82 08/18/20 15:01 Pulse Oximetry 98 08/18/20 15:01 MDM - Abdominal Pain MDM Narrative: Medical decision making narrative: Patient initially seen by PA. Seen the patient in conjunction them chart reviewed reviewed history with the PA and with the patient. She is abdominal pain for last 3 days been increasingly worsening to the point where she can no longer tolerate and came to the emergency room. On exam she has acute peritoneal symptoms in the right lower quadrants strongly suspicious for acute appendicitis which was confirmed by CT. At the moment both the on-call surgeon and the other available general surgeon are both in the operating room with acute perforated viscus. She will be next case in line. There is no other available surgeons at this time. Lab Data: Labs: Lab Results 08/18/20 08/18/20 08/18/20 Range/Units 08:22 08:22 08:22 WBC 12.6 (4.5-13.0) 10^3/ uL RBC 5.17 (4.1-5.3) 10^6/u L Hgb 14.6 (11.5-15.3) g/dL Hct 44.7 (37.0-47.0) % MCV 86.5 (81-99) fL MCH 28.2 (28.0-34.0) pg MCHC 32.7 (30.0-36.0) g/dL RDW 12.4 (12.1-15.1) % Plt Count 248 (130-400) 10^3/c mm MPV 9.6 (7.4-10.4) fL Neut % (Auto) 69.7 % Lymph % (Auto) 20.0 % [place] % (Auto) 8.2 % Eos % (Auto) 1.5 % Baso % (Auto) 0.4 % Neut # (Auto) 8.79 H (1.8-8.0) 10^3/u L Lymph # (Auto) 2.5 (1.5-6.5) 10^3/u L [place] # (Auto) 1.0 H (0.2-0.9) 10^3/u L Eos # (Auto) 0.2 (0.0-0.8) 10^3/u L Baso # (Auto) 0.1 (0.0-0.1) 10^3/u L Nucleated RBC % (a uto) 0 % Nucleated RBCs # 0.0 /100WBC Sodium 138 (136-145) mmol/L Potassium 4.0 (3.5-5.1) mmol/L Chloride 102 (98-107) mmol/L Carbon Dioxide 23 (22-29) mmol/L Anion Gap 17.0 (5-19) BUN 8 (6-20) mg/dL Creatinine 0.3 L (0.5-0.9) mg/dL GFR Calculation 286.6 H (90-130) mL/min Glucose 96 (65-115) mg/dL Calculated Osmolal ity 284 L (285-295) mOsm/k g Calcium 9.1 (8.5-10.5) mg/dL Total Bilirubin 0.4 (0.15-1.2) mg/dL AST 18 (0-32) U/L ALT 27 (0-33) U/L Alkaline Phosphata se 146 H (35-105) IU/L Total Protein 7.4 (6.6-8.7) g/dL Albumin 4.3 (3.5-5.2) g/dL Globulin 3.1 (1.3-4.6) g/dL HCG, Qual Negative (Negative) Urine Color (Yellow) Urine Appearance (CLEAR) Urine pH (5-7) Ur Specific Gravit y (1.005-1.030) Urine Protein (Negative) Urine Glucose (UA) (Normal) Urine Ketones (Negative) Urine Blood (Negative) Urine Nitrate (Negative) Urine Bilirubin (Negative) Urine Urobilinogen (Negative) mg/dL Ur Leukocyte Marylu ase (Negative) Urine RBC (0-2) /hpf Urine WBC (0-5) /hpf Ur Squamous Epith Cells (0-5) /hpf Amorphous Sediment Urine Bacteria (NONE) /hpf 08/18/ Range/Units 08:27 WBC (4.5-13.0) 10^3/ uL RBC (4.1-5.3) 10^6/u L Hgb (11.5-15.3) g/dL Hct (37.0-47.0) % MCV (81-99) fL MCH (28.0-34.0) pg MCHC (30.0-36.0) g/dL RDW (12.1-15.1) % Plt Count (130-400) 10^3/c mm MPV (7.4-10.4) fL Neut % (Auto) % Lymph % (Auto) % [place] % (Auto) % Eos % (Auto) % Baso % (Auto) % Neut # (Auto) (1.8-8.0) 10^3/u L Lymph # (Auto) (1.5-6.5) 10^3/u L [place] # (Auto) (0.2-0.9) 10^3/u L Eos # (Auto) (0.0-0.8) 10^3/u L Baso # (Auto) (0.0-0.1) 10^3/u L Nucleated RBC % (a uto) % Nucleated RBCs # /100WBC Sodium (136-145) mmol/L Potassium (3.5-5.1) mmol/L Chloride (98-107) mmol/L Carbon Dioxide (22-29) mmol/L Anion Gap (5-19) BUN (6-20) mg/dL Creatinine (0.5-0.9) mg/dL GFR Calculation (90-130) mL/min Glucose (65-115) mg/dL Calculated Osmolal ity (285-295) mOsm/k g Calcium (8.5-10.5) mg/dL Total Bilirubin (0.15-1.2) mg/dL AST (0-32) U/L ALT (0-33) U/L Alkaline Phosphata se (35-105) IU/L Total Protein (6.6-8.7) g/dL Albumin (3.5-5.2) g/dL Globulin (1.3-4.6) g/dL HCG, Qual (Negative) Urine Color Yellow (Yellow) Urine Appearance Clear (CLEAR) Urine pH 6 (5-7) Ur Specific Gravit y 1.015 (1.005-1.030) Urine Protein Neg (Negative) Urine Glucose (UA) Norm (Normal) Urine Ketones Negative (Negative) Urine Blood Neg (Negative) Urine Nitrate Negative (Negative) Urine Bilirubin Neg (Negative) Urine Urobilinogen 4 H (Negative) mg/dL Ur Leukocyte Marylu ase Negative (Negative) Urine RBC None (0-2) /hpf Urine WBC None (0-5) /hpf Ur Squamous Epith Cells 0-4 H (0-5) /hpf Amorphous Sediment Not Reportable Urine Bacteria None (NONE) /hpf Discharge Plan Discharge Patient Disposition: Admitted As Inpatient Coding Level of Care Code ED Worship Leader for g Fwd Exam Comprehensive
--- NOTE | 2020-08-18 08:47 | CT_ITS ---
WS: [id number] CT ABDOMEN AND PELVIS WITH CONTRAST HISTORY: RLQ pain with nausea and diarrhea TECHNIQUE: Imaging performed of the abdomen and pelvis with IV contrast. Single phase imaging of the abdomen. Coronal and sagittal reformats are submitted. All CT scans at [facility] use at least one of these dose optimization techniques: automated exposure control; mA and/or kV adjustment per patient size (includes targeted exams where dose is matched to clinical indication); or iterativ e reconstruction. IV CONTRAST: Omnipaque 300; 95 mL IV. Oral contrast: No DLP: 552.42 mGy.cm COMPARISON: 12/16/2016 Lower thorax: Lung bases are clear. Heart is normal size. No hiatal hernia. Liver/biliary system: Normal size with no intrahepatic dilatation. Gallbladder: Normal. No gallstones or wall thickening. No pericholecystic fluid. Pancreas: Normal. Spleen: Normal. Adrenal glands: Normal. Right kidney: Normal. Left kidney: Normal. Aorta: Normal. Lymphadenopathy: Small hyperemic lymph nodes in the RIGHT lower quadrant. Free fluid: None. GI tract: There is extensive inflammation in the RIGHT lower quadrant. The appendix is dilated measur ing 12 mm and contains a central appendicolith. The edema extends to involve the distal small bowel. No obstruction at this time. Abdominal wall: Unremarkable abdominal wall. No hernia. Pelvis: Normal. Bones: Unremarkable. CT/CT abdomen pelvis w con* [id number] IMPRESSION: 1. Acute appendicitis. Significant amount of inflammation. At this time no per foration. 2. No abscess.
[2020-08-18 08:48] LABS: Basophils # 0.1 10^3/uL (0.0-0.1); Basophils % 0.4 %; Eosinophils # 0.2 10^3/uL (0.0-0.8); Eosinophils % 1.5 %; Hematocrit 44.7 % (37.0-47.0); Hemoglobin 14.6 g/dL (11.5-15.3); Lymphocytes # 2.5 10^3/uL (1.5-6.5); Mean Corpuscular HGB Conc 32.7 g/dL (30.0-36.0); Mean Corpuscular Hemoglobin 28.2 pg (28.0-34.0); Mean Corpuscular Volume 86.5 fL (81-99); Mean Platelet Volume 9.6 fL (7.4-10.4); Monocytes % 8.2 %; Neutrophils # 8.79 10^3/uL (1.8-8.0); Neutrophils % 69.7 %; Nucleated Red Blood Cells % 0 %; Platelet Count 248 10^3/cmm (130-400); Red Blood Count 5.17 10^6/uL (4.1-5.3); Red Cell Distribution Width 12.4 % (12.1-15.1); White Blood Count 12.6 10^3/uL (4.5-13.0)
[2020-08-18] MEDS: ondansetron 2 mg/ML SDV 2 mL 4 MG IVP ×3 (08:51→17:52)
[2020-08-18] MEDS: morphine 4 mg/mL SDV 1 mL 2 MG IVP (08:52)
[2020-08-18 09:05] LABS: HCG, Serum Qual Negative (Negative)
[2020-08-18 09:07] LABS: Bilirubin Urine Neg (Negative); Blood Urine Neg (Negative); Glucose Urine UA Norm (Normal); Ketones Urine Negative (Negative); Leukocyte Esterase Urine Negative (Negative); Nitrate Urine Negative (Negative); Protein Urine Neg (Negative); Specific Gravity, Urine 1.015 (1.005-1.030); Urine Appearance Clear (CLEAR); Urine Color Yellow (Yellow); Urobilinogen Urine 4 mg/dL (Negative); pH Urine 6 (5-7)
[2020-08-18 09:09] LABS: Alanine Aminotransferase 27 U/L (0-33); Albumin Level 4.3 g/dL (3.5-5.2); Alkaline Phosphatase 146 IU/L (35-105); Aspartate Amino Transferase 18 U/L (0-32); Blood Urea Nitrogen 8 mg/dL (6-20); Calcium 9.1 mg/dL (8.5-10.5); Carbon Dioxide 23 mmol/L (22-29); Chloride 102 mmol/L (98-107); Globulin 3.1 g/dL (1.3-4.6); Glomerular Filtration Rate 286.6 mL/min (90-130); Glucose 96 mg/dL (65-115); Osmolality Calculated 284 mOsm/kg (285-295); Sodium 138 mmol/L (136-145); Total Bilirubin 0.4 mg/dL (0.15-1.2); Total Protein 7.4 g/dL (6.6-8.7)
[2020-08-18 09:09] LABS: Add Urine Culture? No; Squamous Epithelial Cell Urine 0-4 /hpf (0-5)
[2020-08-18] MEDS: iohexol 300 mg/mL 100 mL Btl IV (10:49)
--- NOTE | 2020-08-18 11:44 | PM.HP ---
Providers/Chief Complaint Admitting Physician: Patric Pelletier MD Primary Care Provider: CATY Downey Chief Complaint: ABD pain on right side History of Present Illness Ms Blanka Aponte is a 19 year old female presents to the emergency department with worsening abdominal pain all over her abdomen followed by diet over the past 3 to 4 days started to shift to the right lower quadrant she reports history of nausea but no vomiting and low-grade fever also had history of diarrhea and difficulty in urination. She had never had this problem before. Patient recently had given vaginal delivery back in February and she is currently breast-feeding her baby. Upon further evaluation in the emergency department blood work showed leukocytosis and a CT scan showed nonperforated appendicitis. Lower thorax: Lung bases are clear. Heart is normal size. No hiatal hernia. Liver/biliary system: Normal size with no intrahepatic dilatation. Gallbladder: Normal. No gallstones or wall thickening. No pericholecystic fluid. Pancreas: Normal. Spleen: Normal. Adrenal glands: Normal. Right kidney: Normal. Left kidney: Normal. Aorta: Normal. Lymphadenopathy: Small hyperemic lymph nodes in the RIGHT lower quadrant. Free fluid: None. GI tract: There is extensive inflammation in the RIGHT lower quadrant. The appendix is dilated measuring 12 mm and contains a central appendicolith. The edema extends to involve the distal small bowel. No obstruction at this time. Abdominal wall: Unremarkable abdominal wall. No hernia. Pelvis: Normal. Bones: Unremarkable. CT/CT abdomen pelvis w con* [id number] IMPRESSION: 1. Acute appendicitis. Significant amount of inflammation. At this time no perforation. 2. No abscess. General surgery was consulted for further evaluation and management. Review of Systems General: Reports: 10 or more systems reviewed and unremarkable except in HPI and below Medications/Allergies Home Medications Medication Instructions Recorded Confirmed Last Taken Type No Known Home Medications 03/29/20 08/18/20 Unknown History Allergies Allergy/AdvReac Type Severity Reaction Status Date / Time No Known Allergies Allergy Verified 08/18/20 13:54 PFSH Acute PFSH: Medical History Hepatitis C antibody positive in blood hep c pcr-- below level of detection History of gestational diabetes Had GDM in third in 2019 Surgical History History of tonsillectomy (~2005) Family History Family/Other Down syndrome Paternal uncle Autism Paternal uncle Social History Smoking and tobacco status: former smoker Quit status (tobacco): has quit using tobacco Year quit tobacco: 2019; was smoking 1/2 ppd Former quit date comment: started smoking at age 11; quit smoking 1 week prior to Alcohol intake: never Additional social history: Well balanced diet Female Reproductive History: Date of last menstrual period: 05/17/19 Vitals/I&O/Wt Last Vital Signs Temp 97.5 F L 08/18/20 08:20 Pulse 103 H 08/18/20 11:06 Resp 16 08/18/20 11:06 BP 118/77 08/18/20 11:06 Pulse Ox 97 08/18/20 11:06 Weight last 48 hrs Weight 150 lb Physical Exam Narrative: EXAM NARRATIVE: Patient is conscious alert oriented X3 BMI 29.3 Head and neck examination PERRLA no masses no cervical lymphadenopathy no jaundice Cardiac examination audible S1-S2 no murmurs no gallops no arrhythmias Chest is clear bilateral,abscence of Rhonchi or wheezes,no surgical emphysema Abdomen tender at the suprapubic and right lower quadrant with localized guarding and rigidity. Maximal tenderness noticed at McBurney's point. Otherwise nondistended except for a lax abdominal wall, abdomen soft no organomegaly guarding or rigidity/no signs of peritonitis Extremities no cyanosis no clubbing no edema Data : 08/18/20 08:22 08/18/20 08:22 A&P Assessment and plan (1) Acute appendicitis: After thorough history physical examination and reviewing the chart and images with my personal interpretion, I counseled the patient for laparoscopic appendectomy possible open. Indications, risks, benefits and alternatives were all discussed with the patient and did agree to proceed. Rationale was carefully and clearly discussed with the patient.Appropriate informed consent have been reviewed and signed Status: Acute Attestations Medical Necessity Statement*: Observation overnight for antimicrobial therapy and pain control Time Spent in Patient Care: (>than 50% of time spent in counselling and/or direct pt care on unit). Coding Level of Care Code Acute Web Systems Developer for [facility] Fwd Diagnoses Acute appendicitis K35.80
[2020-08-18] MEDS: piperacillin-tazobactam 3.375 GM in sodium chloride 0.9% (plus) 50 ML IV ×2 (11:51→20:15)
[2020-08-18] MEDS: sodium chloride 0.9% 1,000 ML 30 ML IV (12:42)
[2020-08-18] MEDS: fentaNYL 50 mcg/mL INJ 2mL IVP (12:43)
--- NOTE | 2020-08-18 13:17 | P.ANESASSM_ITS ---
Pre-Anesthetic Assessment Pre-Anesthetic Assessment: Height/Weight: Height 1.52 m Weight 68.039 kg Temp Pulse Resp BP Pulse Ox 98.6 F 101 H 17 123/76 100 08/18/20 12:09 08/18/20 12:09 08/18/20 12:43 08/18/20 12:09 08/18/20 12:43 Preop Diagnosis: Acute Appendictits Proposed Procedure: Operation Date: 08/18/20 13:00 Proposed Procedures p Laparoscopic Appendectomy(Not Applicable) - Patric Jimenez MD Familial anesthetic complications: None Was Beta Rigo taken within 24 hours: N/A Last intake: NPO > 8 hrs Social: Social History: Alcohol (occassional) and No tobacco Exam: Pre-Anes Outpt Exam: alert, oriented x 3, clear to auscultation bilaterally and regular rate & rhythm Airway: Cervical ROM: WNL MP: 3 Dentition: Chipped (multiple chipped teeth, top and bottom) Additional comments: i have a lot of dental problems Anesthetic Plan: ASA status: 1E Anesthesia: General Risk of > 500 ml blood loss (7ml/kg in children): No Meds/Allergies Current Medications: Current Medications Generic Name Dose Route Start Last Admin Trade Name Freq PRN Reason Stop Dose Admin Fentanyl 50 mcg 08/18/20 12:19 08/18/20 12:43 Fentanyl 50 Mcg/ Ml Inj 2ml IVP 50 mcg Q10M PRN Administration Preop Pain Sodium Chloride 1,000 mls @ 30 ml s/hr 08/18/20 12:30 08/18/20 12:42 Sodium Chloride 0.9% IV 08/19/20 12:29 30 mls/hr .Q24H MARISOL Administration PFSH Anesthesia PFSH: Medical History Hepatitis C antibody positive in blood hep c pcr-- below level of detection History of gestational diabetes Had GDM in third in 2019 Surgical History History of tonsillectomy (~2004) Family History Family/Other Down syndrome Paternal uncle Autism Paternal uncle Social History Smoking and tobacco status: former smoker Quit status (tobacco): has quit using tobacco Year quit tobacco: 2019; was smoking 1/2 ppd Former quit date comment: started smoking at age 11; quit smoking 1 week prior to Alcohol intake: never Additional social history: Well balanced diet Female Reproductive History: Date of last menstrual period: 05/17/19 Data Anesthesia CBC & Chem 7: 08/18/20 08:22 08/18/20 08:22 Other Labs: Laboratory Results - last 48 hr 08/18/20 08/18/20 08/18/20 08:22 08:22 08:22 WBC 12.6 RBC 5.17 Hgb 14.6 Hct 44.7 MCV 86.5 MCH 28.2 MCHC 32.7 RDW 12.4 Plt Count 248 MPV 9.6 Neut % (Auto) 69.7 Lymph % (Auto) 20.0 [facility] % (Auto) 8.2 Eos % (Auto) 1.5 Baso % (Auto) 0.4 Neut # (Auto) 8.79 H Lymph # (Auto) 2.5 [facility] # (Auto) 1.0 H Eos # (Auto) 0.2 Baso # (Auto) 0.1 Nucleated RBC % (auto) 0 Nucleated RBCs # 0.0 Sodium 138 Potassium 4.0 Chloride 102 Carbon Dioxide 23 Anion Gap 17.0 BUN 8 Creatinine 0.3 L GFR Calculation 286.6 H Glucose 96 Calculated Osmolality 284 L Calcium 9.1 Total Bilirubin 0.4 AST 18 ALT 27 Alkaline Phosphatase 146 H Total Protein 7.4 Albumin 4.3 Globulin 3.1 HCG, Qual Negative Urine Color Urine Appearance Urine pH Ur Specific Randall Urine Protein Urine Glucose (UA) Urine Ketones Urine Blood Urine Nitrate Urine Bilirubin Urine Urobilinogen Ur Leukocyte Esterase Urine RBC Urine WBC Ur Squamous Epith Cells Amorphous Sediment Urine Bacteria 08/18/20 08:27 WBC RBC Hgb Hct MCV MCH MCHC RDW Plt Count MPV Neut % (Auto) Lymph % (Auto) [facility] % (Auto) Eos % (Auto) Baso % (Auto) Neut # (Auto) Lymph # (Auto) [facility] # (Auto) Eos # (Auto) Baso # (Auto) Nucleated RBC % (auto) Nucleated RBCs # Sodium Potassium Chloride Carbon Dioxide Anion Gap BUN Creatinine GFR Calculation Glucose Calculated Osmolality Calcium Total Bilirubin AST ALT Alkaline Phosphatase Total Protein Albumin Globulin HCG, Qual Urine Color Yellow Urine Appearance Clear Urine pH 6 Ur Specific Randall 1.015 Urine Protein Neg Urine Glucose (UA) Norm Urine Ketones Negative Urine Blood Neg Urine Nitrate Negative Urine Bilirubin Neg Urine Urobilinogen 4 H Ur Leukocyte Esterase Negative Urine RBC None Urine WBC None Ur Squamous Epith Cells 0-4 H Amorphous Sediment Not Reportable Urine Bacteria None Cardiac Studies: No Data to Display
[2020-08-18] MEDS: lidocaine 2% INJ 20 mL (15:11)
--- NOTE | 2020-08-18 16:23 | P.OP_ITS ---
Operative Report Date of procedure: August 18, 2020 Pre-op Diagnosis: Acute Appendictits Post-op Diagnosis: Retrocecal acute appendicitis without perforation Procedure Done: Laparoscopic appendectomy Specimens removed/disposition: Appendix Surgeon: Patric Jimenez Health Care Marketing Specialist: Surgical [place] and Nicole Circulating nurse Emerald Anesthesia: General (JUS Lazaro) Estimated blood loss (mL): 15 Condition: stable Disposition: same day Brief History: Full H&P per chart after thorough history physical examination and reviewing the chart and images with my personal interpretion, I counseled the patient for laparoscopic appendectomy possible open. Indications, risks, benefits and alternatives were all discussed with the patien t and did agree to proceed. Rationale was carefully and clearly discussed with the patient.Appropriate informed consent have been reviewed and signed Procedure: Patient after being identified in the holding area and asked to void urine, and informed consent per chart ,patient was then taken back to the OR placed in supine position got intubated by anesthesia left arm was tucked tucked ,Timeout was done verifying the patient's name/date of /planned procedure and destination after the procedure, all were in agreement., preoperative antibiotics administered per protocol. prep and drape of the abdomen was done under the usual sterile technique. Started by longitudinal skin incision supraumbilical using a Perez trocar technique safe entry to the abdominal cavity was achieved verified by using 10 mm zero degree laparoscopy, switched to a 30? scope under direct visualization a suprapubic 5 mm trocar was inserted followed by another 5 mm trocar inserted in the left lower quadrant, I was able to position the patient in an T Lauren and left side down, dissection of the retro-cecal acutely inflamed appendix there was some adhesions towards the lateral pelvic wall that was taken down by sharp and blunt dissection, the distal two thirds of the appendix were so bulky inflamed and edematous at the proximal part was healthier, also noticed to have a bulky inflamed and edematous mesoappendix was peeled off from the terminal ileum, attention was deviated to the healthy base of the appendix where I had to switch the camera to 5 mm 30? scope got introduced through the left lower quadrant and through the Perez trocar under direct visualization a GI stapler 45 mm blue load was applied at the healthy part of the base of the appendix, and a vascular load was applied onto the mesoappendix for control , the appendix was then retrieved in an Endo Catch bag, final survey was done of the abdomen and pelvis , copious and thorough irrigation with warm saline, and suction was obtained, were mercury fluid like in the pelvis due to reaction from the inflamed appendix. Multiple 5 mm clips were applied onto the mesoappendix as well as the appendectomy staple line and a right lateral pelvic wall for minimal oozing. There was minor serosal tear at the terminal ileum towards the inflamed process I elected to put a [id number] 2-0 silk suture Final look laparoscopy was done showing no other abnormalities or injuries, all trocars were taken out under direct visualization after the supraumblical trocar site was closed by #1 PDS sutures under direct vision using fascial closure device ,followed by skin closure using 4-0 Monocryl of all trocar site incisions. infiltration of local lidocaine 2% was done to all incision sites.Dry dressing was applied. Count was completed at the end of the procedure for Bee , sponges and instruments Patient tolerated the procedure well and was transferred to the recovery area after extubation. I was present for the whole entire procedure
--- NOTE | 2020-08-18 16:55 | ANE.PACU2 ---
Inpatient post-anesthesia follow up: Airway intact: Yes Vital signs: Temperature 98.2 F Pulse Rate [Monito r] 128 Pulse Rate 97 Respiratory Rate 18 Blood Pressure [Le ft Arm] 105/87 Blood Pressure 112/70 Pulse Oximetry 98 Oxygen Delivery Me thod Room Air Oxygen Flow Rate 2 Fraction of Inspir ed Oxygen Nausea and vomiting: No Pain level: 2 Mental status: Baseline
[2020-08-18] MEDS: morphine 4 mg/mL SDV 1 mL IVP ×2 (17:56→23:48)
[2020-08-18] MEDS: lactated ringers 1,000 ML 100 ML IV (20:12)
[2020-08-18] MEDS: ondansetron 2 mg/ML SDV 2 mL IVP (20:21)
[2020-08-18] MEDS: HYDROcodone-acetaminophen 5-325 mg Tablet 1 TAB PO (20:22)
[2020-08-18] MEDS: scopolamine 1.5 Patch 1 PATCH TRANSDERMA (20:39)
[2020-08-19] MEDS: piperacillin-tazobactam 3.375 GM in sodium chloride 0.9% (plus) 50 ML IV (03:13)
[2020-08-19 04:30] VITALS: BP 112/70; PULSE 97; RESP 18; TEMP 36.8; O2SAT 98
[2020-08-19] MEDS: HYDROcodone-acetaminophen 5-325 mg Tablet 1 TAB PO (05:54)
[2020-08-19] MEDS: lactated ringers 1,000 ML 100 ML IV (05:55)
[2020-08-19 06:03] LABS: Basophils % 0.1 %; Eosinophils % 0.1 %; Hematocrit 39.1 % (37.0-47.0); Hemoglobin 12.4 g/dL (11.5-15.3); Lymphocytes # 2.2 10^3/uL (1.5-6.5); Lymphocytes % 18.9 %; Mean Corpuscular HGB Conc 31.7 g/dL (30.0-36.0); Mean Corpuscular Hemoglobin 27.9 pg (28.0-34.0); Mean Corpuscular Volume 88.1 fL (81-99); Mean Platelet Volume 9.7 fL (7.4-10.4); Monocytes # 0.9 10^3/uL (0.2-0.9); Monocytes % 8.2 %; Neutrophils # 8.23 10^3/uL (1.8-8.0); Neutrophils % 72.3 %; Nucleated Red Blood Cells % 0 %; Platelet Count 236 10^3/cmm (130-400); Red Blood Count 4.44 10^6/uL (4.1-5.3); Red Cell Distribution Width 12.2 % (12.1-15.1); White Blood Count 11.4 10^3/uL (4.5-13.0)
[2020-08-19 06:31] LABS: Anion Gap 13.9 (5-19); Blood Urea Nitrogen 5 mg/dL (6-20); Calcium 8.7 mg/dL (8.5-10.5); Carbon Dioxide 24 mmol/L (22-29); Chloride 103 mmol/L (98-107); Glomerular Filtration Rate 205.6 mL/min (90-130); Glucose 115 mg/dL (65-115); Osmolality Calculated 282 mOsm/kg (285-295); Potassium 3.9 mmol/L (3.5-5.1); Sodium 137 mmol/L (136-145)
--- NOTE | 2020-08-19 07:29 | PM.SDS ---
Short Stay Summary Providers Date of Admit/Discharge: 08/19/20 Attending Provider: Patric Jimenez MD Primary Care Provider: CATY Downey Chief Complaint: ABD pain on right side HPI History of Present Illness Blanka Aponte is a 19 year old female presented to the emergency department with worsening abdominal pain and was found to have acute appendicitis, patient undergone uneventful laparoscopic appendectomy and has been responding well and feeling better. Review of Systems General: Reports: 10 or more systems reviewed and unremarkable except in HPI and below Home Meds/Allergies Home Medications and Allergies Allergies Allergy/AdvReac Type Severity Reaction Status Date / Time No Known Allergies Allergy Verified 08/19/20 07:29 PFSH Acute PFSH: Medical History Hepatitis C antibody positive in blood hep c pcr-- below level of detection History of gestational diabetes Had GDM in third in 2019 Surgical History History of tonsillectomy (~2005) Family History Family/Other Down syndrome Paternal uncle Autism Paternal uncle Social History Smoking and tobacco status: former smoker Quit status (tobacco): has quit using tobacco Year quit tobacco: 2018; was smoking 1/2 ppd Former quit date comment: started smoking at age 11; quit smoking 1 week prior to Alcohol intake: never Additional social history: Well balanced diet Female Reproductive History: Date of last menstrual period: 08/11/20 Vitals/I&O/Wt Last Vital Signs Temp 98.2 F 08/19/20 04:30 Pulse 97 08/19/20 04:30 Resp 18 08/19/20 04:30 BP 112/70 08/19/20 04:30 Pulse Ox 98 08/19/20 04:30 08/18/20 08/19/20 08/19/20 22:59 06:59 14:59 Intake Total 0 / 150 1021.667 / 1171.667 Output Total 0 / 0 1750 / 1750 Balance 0 / 150 -728.333 / -578.333 Weight last 48 hrs Weight 150 lb Physical Exam Narrative: EXAM NARRATIVE: Patient is conscious alert oriented X3 BMI 29 Head and neck examination PERRLA no masses no cervical lymphadenopathy no jaundice Cardiac examination audible S1-S2 no murmurs no gallops no arrhythmias Chest is clear bilateral,abscence of Rhonchi or wheezes,no surgical emphysema Abdomen nontender except mildly at the incision sites otherwise clean dry and intact. Nondistended soft no organomegaly guarding or rigidity/no signs of peritonitis Extremities no cyanosis no clubbing no edema Urinary Catheter Management^: Straight: Cath Placed During This Visit: no Hospital Course Discharge Summary This is a pleasant 19 years old female patient presented with worsening abdominal pain and further work-up showed acute appendicitis. Patient was taken for surgery in the form of laparoscopic appendectomy and she did well with that regard. She was kept overnight for observation for antimicrobial therapy in the form of IV and has been having well controlled pain and appropriate p.o. intake and good urine output. Patient has been passing gas. And will switch her to soft GI diet with the plan to discharge home today on oral antibiotics. Patient was encouraged about continue pumping of both lactating breasts to avoid mastitis and subsequently abscess formation also patient was given education with regard to narcotics being secreted in the milk to avoid potential harm to her baby. SSS Data Data Completed and Pending: Completed Studies During Hospitalization Category Date Time Status CT abdomen pelvis w con* [id number] Urge nt Cat Scan 08/18/20 08:47 Completed Pending at discharge Category Date Time Status ES surgery / GI i mages Routine Exams 08/18/20 14:10 Taken Basic Metabolic P jeronimo AM LABS Lab 08/20/20 04:00 Ordered Basic Metabolic P jeronimo AM LABS Lab 08/21/20 04:00 Ordered Hemoglobin and He matocrit AM LABS Lab 08/20/20 04:00 Ordered Hemoglobin and He matocrit AM LABS Lab 08/21/20 04:00 Ordered Pathology: Surgic al [PTH] Routine Pth 08/18/20 16:02 Ordered Diagnoses at Discharge Discharge Diagnosis (1) Acute appendicitis: Status: Resolved Discharge Plan Discharge Patient Disposition: Home Condition: Stable Prescriptions: New Augmentin 875-125 mg tablet 1 tab PO Q12H 5 Days Qty: 10 RF: 0 Troy 5-325 mg tablet 1 tab PO Q6H PRN (Reason: pain) Qty: 28 RF: 0 Discharge Orders: Discharge Order (Routine); Ordered 08/19/20 Ordered By: Patric Jimenez Referrals: Patric Jimenez MD [Physician] - (Return to surgery office in 2 weeks) Discharge Diet: Advance as tolerated Discharge Activity: Increase activity as tolerated Activity Restrictions/Additional Instructions: 1. Patient can shower after 48 hours from surgery 2. Remove Dermabond 7 to 10 days after surgery, if there is a secondary dressing can take down after 48 hours. 3. Up and walking as tolerated 4. Do lift more than 5 pounds first 2 weeks after surgery and not more than 25 pounds 6 to 8 weeks after surgery. 5. Do not operate heavy machinery or drive while using pain medications. 6.Contact the office or return to the ER for worsening nausea vomiting fevers or chills, or noticing any redness around incision sites or discharge. 7. Avoid constipation 8. Education about breast-feeding and hazards of medications secreted through breast milk that can carry potential harm to the baby. Attestations Medical Necessity Statement*: Observation status for pain control and IV antibiotics Time Spent in Patient Care*: less than 30 min Specific Discharge Activities: Specific discharge activities: educating patient and educating and/or supporting family/caregiver Status at Discharge: Cognitive status at discharge: cognitively intact, Behavioral status at discharge: cooperative, Functional status at discharge: independent ambulation Overall status at discharge: patient is progressing back to baseline Quality Metrics Clinical Quality Measures: During this hospital stay, did patient experience: None Coding Level of Care Code Acute Chief Of Surgery for Narinderg Fwd Diagnoses Acute appendicitis K35.80
[2020-08-19 07:48] VITALS: BP 109/75; PULSE 87; RESP 16; TEMP 36.6; O2SAT 98
[2020-08-19 10:10] VITALS: BP 109/75; PULSE 87; RESP 16; TEMP 36.6; O2SAT 98
--- NOTE | 2020-08-19 10:24 | PC.NURSE ---
DC instructions given to patient,voiced full understanding, IV DC'd cath intact bleeding controlled with 2x2 and coban.Pt to main entrance via wheelchair to private vehicle with zero difficulties.
== END 2020-08-19 10:24 | disposition home or self-care (01) ==
LOC: ER 11:42 → OPS 11:48 → MEDSURG 16:24
PROVIDERS: Physician Assistant; Admitting Provider Surgery; Emergency Provider Family Medicine; PCP Nurse Practitioner Family; Visit Provider Surgery
PROC: 0DTJ4ZZ Resection of Appendix, Percutaneous Endoscopic Approach (ICD-10-PCS; CPT 44970; principal; 2020-08-18 13:00)
DX: K35.80 Unspecified acute appendicitis (principal); Z87.891 Personal history of nicotine dependence
CPT/HCPCS: 44970; 12345; 36415; 74177; 80048; 80053; 81001; 84703; 85025; 88304; 96361; 96365; 96366; 96375; 99283; 99285; G0378; J0131; J1100; J1885; J2250; J2270; J2405; J2543; J2704; J2710; J3010; J3490; J7030; Q9967

== ENCOUNTER → 2021-03-10 14:15 | Outpatient (BNVA) | payer BC, SELFPAY | PROVIDERS: PCP Nurse Practitioner Family; Visit Provider Nurse Practitioner Women's Health | DX: N91.2 Amenorrhea, unspecified (principal); N92.6 Irregular menstruation, unspecified | CPT/HCPCS: 81025; 84702 ==

== ENCOUNTER → 2021-03-31 13:27 | Outpatient (BNVA) | payer BC, SELFPAY | PROVIDERS: PCP Nurse Practitioner Family; Visit Provider Nurse Practitioner Women's Health | DX: O09.299 Supervision of pregnancy with other poor reproductive or obstetric history, unspecified trimester (principal); Z86.32 Personal history of gestational diabetes; O21.9 Vomiting of pregnancy, unspecified | CPT/HCPCS: 81000 ==

== ENCOUNTER → 2021-04-04 09:29 | Outpatient (BNVA) | payer BC, MEDICAID, SELFPAY | PROVIDERS: PCP Nurse Practitioner Family; Visit Provider Obstetrics & Gynecology | DX: O09.299 Supervision of pregnancy with other poor reproductive or obstetric history, unspecified trimester (principal); Z86.32 Personal history of gestational diabetes; O21.9 Vomiting of pregnancy, unspecified | CPT/HCPCS: 80307; 81000; 82950; 85025; 86592; 86762; 86803; 86850; 86900; 87086; 87340; 87806 ==

== ENCOUNTER → 2021-04-05 13:35 | Outpatient (BNVA) | payer BC, MEDICAID, SELFPAY | PROVIDERS: PCP Nurse Practitioner Family; Visit Provider Obstetrics & Gynecology | DX: O09.299 Supervision of pregnancy with other poor reproductive or obstetric history, unspecified trimester (principal); Z86.32 Personal history of gestational diabetes; O21.9 Vomiting of pregnancy, unspecified; R76.8 Other specified abnormal immunological findings in serum | CPT/HCPCS: 87522 ==

== ENCOUNTER → 2021-04-27 09:03 | Outpatient (BNVA) | payer BC, MEDICAID, SELFPAY | PROVIDERS: PCP Nurse Practitioner Family; Visit Provider Obstetrics & Gynecology | DX: Z11.3 Encounter for screening for infections with a predominantly sexual mode of transmission; Z12.4 Encounter for screening for malignant neoplasm of cervix; O09.299 Supervision of pregnancy with other poor reproductive or obstetric history, unspecified trimester; Z86.32 Personal history of gestational diabetes; O21.9 Vomiting of pregnancy, unspecified | CPT/HCPCS: 81000; 87491; 87591; 87661 ==

== ENCOUNTER → 2021-05-25 11:16 | Outpatient (BNVA) | payer BC, MEDICAID, SELFPAY | PROVIDERS: PCP Nurse Practitioner Family; Visit Provider Nurse Practitioner Women's Health | DX: Z34.80 Encounter for supervision of other normal pregnancy, unspecified trimester (principal) | CPT/HCPCS: 81000 ==

== ENCOUNTER → 2021-06-30 13:52 | Outpatient (BNVA) | payer BC, MEDICAID, SELFPAY | PROVIDERS: PCP Nurse Practitioner Family; Visit Provider Obstetrics & Gynecology | DX: Z34.80 Encounter for supervision of other normal pregnancy, unspecified trimester (principal) | CPT/HCPCS: 81000 ==

== ENCOUNTER → 2021-07-21 14:05 | Outpatient (BNVA) | payer BC, MEDICAID, SELFPAY | PROVIDERS: PCP Nurse Practitioner Family; Visit Provider Obstetrics & Gynecology | DX: Z34.80 Encounter for supervision of other normal pregnancy, unspecified trimester (principal) | CPT/HCPCS: 81000 ==

== ENCOUNTER → 2021-08-18 13:58 | Outpatient (BNVA) | payer BC, MEDICAID, SELFPAY | PROVIDERS: PCP Nurse Practitioner Family; Visit Provider Obstetrics & Gynecology | DX: Z34.80 Encounter for supervision of other normal pregnancy, unspecified trimester (principal) | CPT/HCPCS: 81000; 82950; 85025 ==

== ENCOUNTER → 2021-09-01 08:33 | Outpatient (BNVA) | payer BC, MEDICAID, SELFPAY | PROVIDERS: PCP Nurse Practitioner Family; Visit Provider Obstetrics & Gynecology | DX: Z34.80 Encounter for supervision of other normal pregnancy, unspecified trimester (principal) | CPT/HCPCS: 81000 ==

== ENCOUNTER → 2021-09-15 10:58 | Outpatient (BNVA) | payer BC, MEDICAID, SELFPAY | PROVIDERS: PCP Nurse Practitioner Family; Visit Provider Obstetrics & Gynecology | DX: Z34.80 Encounter for supervision of other normal pregnancy, unspecified trimester (principal) | CPT/HCPCS: 81000; 82951; 82952 ==

== ENCOUNTER → 2021-09-22 13:53 | Outpatient (BNVA) | payer BC, MEDICAID, SELFPAY | PROVIDERS: Visit Provider Obstetrics & Gynecology | DX: Z34.80 Encounter for supervision of other normal pregnancy, unspecified trimester (principal) | CPT/HCPCS: 81000 ==

== ENCOUNTER → 2021-09-29 15:14 | Outpatient (BNVA) | payer BC, MEDICAID, SELFPAY | PROVIDERS: Visit Provider Obstetrics & Gynecology | DX: Z34.80 Encounter for supervision of other normal pregnancy, unspecified trimester (principal) | CPT/HCPCS: 81000 ==

== ENCOUNTER → 2021-10-13 15:42 | Outpatient (BNVA) | payer BC, MEDICAID, SELFPAY | PROVIDERS: Visit Provider Obstetrics & Gynecology | DX: O09.299 Supervision of pregnancy with other poor reproductive or obstetric history, unspecified trimester (principal); Z3A.00 Weeks of gestation of pregnancy not specified | CPT/HCPCS: 81000; 87081 ==

== ENCOUNTER → 2021-10-20 13:09 | Outpatient (BNVA) | payer BC, MEDICAID, SELFPAY | PROVIDERS: Visit Provider Obstetrics & Gynecology | DX: Z34.80 Encounter for supervision of other normal pregnancy, unspecified trimester (principal) | CPT/HCPCS: 81000 ==

== ENCOUNTER 2021-10-24 13:46 | Outpatient (CLI) | payer BC, MEDICAID, SELFPAY ==
[2021-10-24 14:02] VITALS: RESP 17
[2021-10-24 14:24] VITALS: BMI 31.0
[2021-10-24 14:59] LABS: Add Urine Culture? No; Bacteria Urine 1+ /hpf; Bilirubin Urine Neg (Negative); Blood Urine Neg (Negative); Glucose Urine UA Norm (Normal); Ketones Urine Negative (Negative); Leukocyte Esterase Urine Negative (Negative); Nitrate Urine Negative (Negative); Protein Urine Neg (Negative); Specific Gravity, Urine 1.005 (1.005-1.030); Urine Appearance Clear (CLEAR); Urine Color Straw (Yellow); Urobilinogen Urine Norm (Negative); WBC Urine RARE /hpf (0-5); pH Urine 7 (5-7)
[2021-10-24 15:01] VITALS: BP 112/68; PULSE 98
[2021-10-24 15:16] VITALS: BP 113/67; PULSE 93
[2021-10-24 15:35] VITALS: BP 113/67; PULSE 93
== END 2021-10-24 15:38 | disposition home or self-care (01) ==
LOC: OPOB 13:47 → OBGYN 13:48
PROVIDERS: Visit Provider Obstetrics & Gynecology
DX: O23.40 Unspecified infection of urinary tract in pregnancy, unspecified trimester (principal); Z3A.00 Weeks of gestation of pregnancy not specified; R10.9 Unspecified abdominal pain
CPT/HCPCS: 59025; 81001; 99211

== ENCOUNTER → 2021-10-28 14:42 | Outpatient (BNVA) | payer BC, MEDICAID, SELFPAY | PROVIDERS: Visit Provider Obstetrics & Gynecology | DX: Z34.80 Encounter for supervision of other normal pregnancy, unspecified trimester (principal) | CPT/HCPCS: 81000 ==

== ENCOUNTER → 2021-10-31 14:37 | Outpatient (BNVA) | payer BC, MEDICAID, SELFPAY | PROVIDERS: Visit Provider Obstetrics & Gynecology | DX: Z34.80 Encounter for supervision of other normal pregnancy, unspecified trimester (principal) | CPT/HCPCS: 81000 ==

== ENCOUNTER 2021-11-03 17:11 | Inpatient (IN) | payer BC, MEDICAID, SELFPAY ==
[2021-11-03] VITALS (30 sets, daily range): BP systolic 104–127; BP diastolic 63–87; PULSE 78–105; RESP 17–18; TEMP 36.4; BMI 29.9
[2021-11-03 17:54] LABS: Basophils % 0.4 %; Eosinophils # 0.1 10^3/uL (0.0-0.8); Hematocrit 38.1 % (37.0-47.0); Hemoglobin 12.5 g/dL (11.5-15.3); Lymphocytes # 2.3 10^3/uL (1.5-6.5); Lymphocytes % 23.3 %; Mean Corpuscular HGB Conc 32.8 g/dL (30.0-36.0); Mean Corpuscular Hemoglobin 29.1 pg (28.0-34.0); Mean Corpuscular Volume 88.6 fl (81-99); Mean Platelet Volume 10.7 fL (7.4-10.4); Monocytes # 0.6 10^3/uL (0.2-0.9); Monocytes % 6.1 %; Neutrophils # 6.72 10^3/uL (1.8-8.0); Neutrophils % 68.9 %; Nucleated Red Blood Cells % 0 %; Platelet Count 245 10^3/cmm (130-400); Red Cell Distribution Width 12.8 % (12.1-15.1); White Blood Count 9.8 10^3/uL (4.5-13.0)
[2021-11-03] MEDS: lactated ringers 1,000 ML 999 ML IV (18:11)
[2021-11-03] MEDS: ampicillin 2,000 MG in sodium chloride 0.9% (plus) 50 ML 100 MG IV (18:12)
[2021-11-03] MEDS: oxytocin 30 UNIT/500 ML BAG IV (18:15)
[2021-11-03] MEDS: lactated ringers 1,000 ML 125 ML IV (19:27)
--- NOTE | 2021-11-03 20:12 | PM.OPHPUD ---
Labor & Delivery H&P Update Date of Procedure: November 04, 2021 Date H&P Performed: 10/31/21 H&P update information: I have reviewed H&P completed within last 30 days, I have examined patient prior to procedure and No changes to prior documentation Changes to previous documentation: The patient presents for induction of labor due to gestational diabetes Admission Diagnosis: Preop diagnosis: labor pain
[2021-11-03] MEDS: ampicillin 1,000 MG in sodium chloride 0.9% (plus) 50 ML 100 MG IV (21:58)
[2021-11-03 22:24] LABS: Adenovirus Not Detected (NOT DETECT); Chlamydia Pneumoniae Not Detected (NOT DETECT); Coronavirus 229E,HKU1,NL63,OC4 Not Detected (NOT DETECT); Human Metapneumovirus Not Detected (NOT DETECT); Human Rhinovirus/Enterovirus Not Detected (NOT DETECT); Influenza A Not Detected (NOT DETECT); Influenza A H1 Not Detected (NOT DETECT); Influenza A H1-2009 Not Detected (NOT DETECT); Influenza A H3 Not Detected (NOT DETECT); Influenza B Not Detected (NOT DETECT); Mycoplasma Pneumoniae Not Detected (NOT DETECT); Parainfluenza Virus Type 1 Not Detected (NOT DETECT); Parainfluenza Virus Type 2 Not Detected (NOT DETECT); Parainfluenza Virus Type 3 Not Detected (NOT DETECT); Parainfluenza Virus Type 4 Not Detected (NOT DETECT); Respiratory Syncytial Virus A Not Detected (NOT DETECT); Respiratory Syncytial Virus B Not Detected (NOT DETECT); SARS-COV-2 Not Detected (NOT DETECT)
[2021-11-03 23:03] LABS: Glucose Point of Care 105 mg/dL (70-110)
[2021-11-04] VITALS (139 sets, daily range): BP systolic 92–139; BP diastolic 52–96; PULSE 68–112; RESP 16–18; TEMP 35.9–36.8; O2SAT 92–100
[2021-11-04 00:20] LABS: Glucose Point of Care 74 mg/dL (70-110)
[2021-11-04] MEDS: lactated ringers 1,000 ML 999 ML IV (00:25)
--- NOTE | 2021-11-04 00:47 | ANES.PREANE2 ---
Pre-Anesthetic Assessment Height/Weight: Height 1.52 m Weight 69.4 kg Temp Pulse Resp BP 97.5 F L 82 18 129/82 11/03/21 18:24 11/04/21 00:34 11/03/21 19:00 11/04/21 00:34 Preop Diagnosis: labor pain epidural Familial anesthetic complications: none Was Beta Rigo taken within 24 hours: N/A Was Clonidine taken within 24 hours: N/A Social No alcohol and No tobacco Exam alert, oriented x 3, clear to auscultation bilaterally and regular rate & rhythm Airway Submandibular: within normal limits Cervical ROM: within normal limits Mallampati: Class II Dentition: full Pulmonary None reported CV/HEM None reported None reported Hepatic Hepatitis (Hep C) GI Gastroesophageal Reflux Disease Metabolic Diabetes Mellitus (Gestational) Musc/skel None reported Neuropsych None reported Anesthetic Plan ASA status: 2 Anesthesia: Regional (specify below) Risk of > 500 ml blood loss (7ml/kg in children): No Medications/Allergies Home Medications Medication Instructions Recorded Confirmed Last Taken Type prenat.vits,roxy,[id number]-[id number] 1 tab PO DAILY 10/31/21 11/03/21 Unknown History Allergies Allergy/AdvReac Type Severity Reaction Status Date / Time No Known Allergies Allergy Verified 10/31/21 13:51 Current Medications Generic Name Dose Route Start Last Admin Trade Name Freq PRN Reason Stop Dose Admin Lactated Ringer's 1,000 mls @ 999 mls/hr 11/03/21 17:45 11/03/21 19:27 Lactated Ringers IV Infused .Q1H1M PRN Infusion Per L&D Rescitation Protocol Lactated Ringer's 1,000 mls @ 125 mls/hr 11/03/21 17:45 11/03/21 19:27 Lactated Ringers IV 125 mls/hr .Q8H MARISOL Administration Ampicillin Sodium 1,000 mg/ 50 mls @ 100 mls/hr 11/03/21 21:45 11/03/21 21:58 Sodium Chloride IV 100 mls/hr Q4H MARISOL Administration Protocol Oxytocin 30 unit in 500 mls @ 1 mls/hr 11/03/21 17:45 11/03/21 18:50 Pitocin IV 2 milliunit/min .Q24H MARISOL 2 mls/hr Titration Protocol 1 MILLIUNIT/MIN Lactated Ringer's 1,000 mls @ 999 mls/hr 11/04/21 00:06 11/04/21 00:25 Lactated Ringers IV 999 mls/hr .Q1H1M PRN Administration See label comments [facility] Anesthesia Medical History Hepatitis C antibody positive in blood hep c pcr-- below level of detection History of gestational diabetes Had GDM in third in 2019; managed with insulin Surgical History History of appendectomy (~08/2020) [place], [place] by Dr. Jimenez. History of tonsillectomy (~2004) Family History Family/Other Down syndrome Paternal uncle Autism Paternal uncle Grandmother Cancer MGM- Breast CA; unknown age of dx Social History Additional social history: Well balanced diet Female Reproductive History Date of last menstrual period: 08/11/20 : 4 Data Anesthesia : 11/03/21 17:31 Short CBC 11/03/21 Range/Units 17:31 WBC 9.8 (4.5-13.0) 10^3/uL Hgb 12.5 (11.5-15.3) g/dL Hct 38.1 (37.0-47.0) % MCV 88.6 (81-99) fl Plt Count 245 (130-400) 10^3/cmm Neut % (Auto) 68.9 % Neut # (Auto) 6.72 (1.8-8.0) 10^3/uL COVID Results 11/03/21 17:52 Coronavirus 229E (PCR) Not detected SARS-CoV-2 (PCR) Not detected Cardiac Studies: No Data to Display
--- NOTE | 2021-11-04 01:12 | P.ANES_ITS ---
Anesthesia Procedures Procedure/Date: 11/04/21 epidural Procedure Narrative: epidural complete, bolus given, epidural pump initiated with COMPENSATION SUPERVISOR education given, vitals taken during procedure using OBIX system and satisfactory throughout, patient admits to decrease pain, report of procedure to OB RN Epidural: Time Out Performed: Yes Consents Signed: Procedure Consent Consent: requested by attending/covering physician, from patient, risks and benefits reviewed and patient agrees to proceed Lumbar Level: L3-L4 Epidural position: sitting Epidural procedure: sterile prep of area, 1% lidocaine to numb the area (3 mL), 18 g needle, negative for paresthesia passed, neg for paresthesia, test dose given, 1.5% xylocaine 1:200k epi (5 mL), 0.2% Ropivacaine bolus ml (5 mL), placed PCEA, no systemic response, sterile dressing applied, L.U.D. no apparent complications and 0.2% Ropiavacaine @ mls/hr (13 mL/hr)
[2021-11-04 01:23] LABS: Glucose Point of Care 78 mg/dL (70-110)
[2021-11-04] MEDS: ampicillin 1,000 MG in sodium chloride 0.9% (plus) 50 ML 100 MG IV ×5 (01:42→18:09)
[2021-11-04] MEDS: acetaminophen 325 mg Tablet 650 MG PO (01:42)
[2021-11-04 02:24] LABS: Glucose Point of Care 77 mg/dL (70-110)
[2021-11-04] MEDS: lactated ringers 1,000 ML 125 ML IV ×2 (05:50→08:21)
[2021-11-04 06:18] LABS: Glucose Point of Care 67 mg/dL (70-110)
[2021-11-04] MEDS: dextrose 5%-lactated ringers 1,000 ML 125 ML IV (06:28)
[2021-11-04] MEDS: oxytocin 30 UNIT/500 ML BAG IV (07:30)
[2021-11-04 10:26] LABS: Glucose Point of Care 64 mg/dL (70-110)
--- NOTE | 2021-11-04 14:09 | PC.NURSE ---
Patient pushed her call light at 1405 and said that with her last contraction it was very strong and painful. She pushed her bolus button on the epidural. I changed her position in the bed. I also told her to let me know if the pain stays the same or worsens and we can discuss other options. She verbalized understanding and had no further questions at this time.
--- NOTE | 2021-11-04 14:10 | PM.OPHPUD ---
Labor & Delivery H&P Update Date of Procedure: November 04, 2021 Date H&P Performed: 10/31/21 Admission Diagnosis: Preop diagnosis: labor pain Related Problem List Diagnoses (1) GBS (group B Streptococcus carrier), +RV culture, currently : (2) Gestational diabetes: (3) Hepatitis C antibody positive in blood:
--- NOTE | 2021-11-04 14:11 | P.PN_ITS ---
CERTIFIED TUMOR REGISTRAR Subjective Subjective: Interval history: The patient is on 19 units of pitocin. AROM was performed with clear fluid. SVE: 5/8//-4 overall very reassuring status. Labor: Station: -3 Amniotic Membrane Status: Ruptured Monitor Mode: External Contraction Pattern: Regular Vitals/I&O/Wt Last Vital Signs Temp 97.1 F L 11/04/21 14:00 Pulse 86 11/04/21 14:02 Resp 18 11/04/21 14:00 BP 128/58 11/04/21 14:02 Pulse Ox 98 11/04/21 02:12 11/03/21 11/04/21 11/04/21 22:59 06:59 14:59 Intake Total 1067.583 / 1602.615 3294.316 / 2830.899 741.583 / 741.583 Output Total 400 / 400 Balance 1067.583 / 9912.140 3385.316 / 2430.899 741.583 / 741.583 Weight last 48 hrs Weight 153 lb Physical Exam Urinary Catheter Management: Franklin Latex: Cath Placed During This Visit: yes Reason for Continuing Indwelling Catheter: Required Immobilization for Trauma or Surgery or Anesthesia Urinary Catheter Date of Insertion: 11/04/21 Urinary Catheter Time of Insertion: 01:30 Data : 11/03/21 17:31 Attestations Medical Necessity Statement*: The patient will be here at least 2 midnights. Coding Level of Care Code Acute Supply Chain Procurement Manager for Lori Wild
[2021-11-04 14:21] LABS: Glucose Point of Care 64 mg/dL (70-110)
[2021-11-04] MEDS: diphenhydrAMINE 50 mg/mL SDV 1mL 25 MG IVP (15:06)
[2021-11-04 16:48] LABS: Glucose Point of Care 85 mg/dL (70-110)
--- NOTE | 2021-11-04 19:30 | PM.DELIVERY ---
Delivery Note: Date of delivery: November 04, 2021 Pre-delivery diagnoses: iup@39 2/, gestational diabetes, GBS positive, hepatitis C antibody positive Post-delivery diagnoses: same Procedure: Delivering Physician: Dr. Forbes Estimated blood loss (mL): 50 Findings: term female in the BRYCE presentation with compound left hand. Pre-Delivery Course: The patient was admitted for induction at term. She received 4+ doses of ampicillin prior to delivery. She had pitocin started and then AROM. Pitocin was stopped and her cervix became completely dilated Delivery: The patient had complete cervical dilation and began to push. The head delivered in the BRYCE position over an intact perineum under epidural anesthesia. The nose and mouth were bulb suctioned. The shoulders and body delivered atraumatically. The baby was placed onto the mother's abdomen. The cord was clamped and cut. Cord blood was obtained. The placenta delivered spontaneously. It was inspected and found to be intact. Inspection of the perineum revealed no repair was required. Estimated blood loss 50 mL. Apgars on baby were 9 at 1 minute and 10 at 5 minutes. Weight of baby is pending. Mother and baby were stable post delivery. History History History 4 Term 1 Miscarriages/Ectopic 2 0 Living Children 1 Coding Level of Care Code Acute Help Desk Consultant for Chg Torri
[2021-11-04] MEDS: lanolin oint 7 gm 1 APPLIC TOPICAL (19:54)
[2021-11-04] MEDS: benzocaine-menthol 78 gm Canister 1 SPRAY TOPICAL (19:55)
[2021-11-04] MEDS: ibuprofen 800 mg tablet PO (22:25)
[2021-11-05] VITALS: BP 124/82; PULSE 87; RESP 16; O2SAT 98
[2021-11-05 01:15] VITALS: BP 123/71; PULSE 92; RESP 16; O2SAT 98
[2021-11-05 04:27] VITALS: BP 124/70; PULSE 66; RESP 16; O2SAT 97
[2021-11-05 07:44] LABS: Hematocrit 38.3 % (37.0-47.0); Hemoglobin 12.6 g/dL (11.5-15.3); Mean Corpuscular HGB Conc 32.9 g/dL (30.0-36.0); Mean Corpuscular Hemoglobin 29.4 pg (28.0-34.0); Mean Corpuscular Volume 89.3 fl (81-99); Mean Platelet Volume 10.5 fL (7.4-10.4); Platelet Count 200 10^3/cmm (130-400); Red Blood Count 4.29 10^6/uL (4.1-5.3); Red Cell Distribution Width 12.8 % (12.1-15.1); White Blood Count 12.5 10^3/uL (4.5-13.0)
--- NOTE | 2021-11-05 08:27 | ANE.PACU2 ---
Inpatient post-anesthesia follow up: Airway intact: Yes Vital signs: Temperature 98.2 F Pulse Rate 66 Respiratory Rate 16 Blood Pressure 124/70 Pulse Oximetry 97 Oxygen Delivery Me thod Room Air Oxygen Flow Rate Fraction of Inspir ed Oxygen Hydration adequate: Yes Nausea and vomiting: No Pain level: 2 Mental status: Baseline
[2021-11-05 09:11] VITALS: BP 116/70; PULSE 69; RESP 16; TEMP 36.4
[2021-11-05] MEDS: prenatal vitamin Capsule 1 CAP PO (09:11)
[2021-11-05] MEDS: docusate sodium 100 mg Capsule PO ×2 (09:11→18:05)
[2021-11-05] MEDS: ibuprofen 800 mg tablet PO ×3 (09:11→20:32)
[2021-11-05] MEDS: HYDROcodone-acetaminophen 5-325 mg Tablet PO (13:11)
--- NOTE | 2021-11-05 14:54 | PM.PN ---
Vitals/I&O/Wt Last Vital Signs Temp 97.6 F 11/05/21 09:11 Pulse 69 11/05/21 09:11 Resp 16 11/05/21 09:11 BP 116/70 11/05/21 09:11 Pulse Ox 97 11/05/21 04:27 11/04/21 11/05/21 11/05/21 22:59 06:59 14:59 Output Total 1999 Balance -[id number] Weight last 48 hrs Weight 153 lb Physical Exam Narrative: The patient is doing well this morning. No concerns. Breast feeding is going well. Const: COMMON NORMALS: no acute distress, average body habitus, patient oriented x3, no limitations, healthy appearing, alert and well nourished GENERAL APPEARANCE: cooperative, comfortable, well kempt and well developed ORIENTATION/CONSCIOUSNESS: Yes awake, Yes oriented to person, Yes oriented to place and Yes oriented to time Resp: COMMON NORMALS: normal respiratory effort EFFORT & INSPECTION: Yes able to speak in complete sentences GI: COMMON NORMALS: Soft to palpation and non-tender PALPATION: Yes Soft to palpation Extremity: COMMON NORMALS: no calf tenderness Neuro: COMMON NORMALS: patient oriented x3 SENSORIUM/ORIENTATION: Yes alert, Yes oriented to person, Yes oriented to place and Yes oriented to time Psych: APPEARANCE: Yes well kempt Urinary Catheter Management: Franklin Latex: Cath Placed During This Visit: yes Reason for Continuing Indwelling Catheter: Required Immobilization for Trauma or Surgery or Anesthesia Urinary Catheter Date of Insertion: 11/04/21 Urinary Catheter Time of Insertion: 01:30 Data : 11/05/21 07:20 Attestations Medical Necessity Statement*: she will be here 2 midnights Coding Level of Care Code Acute Legislative Assistant for Lori Wild
[2021-11-05 16:00] VITALS: BP 115/76; PULSE 70; RESP 16; TEMP 36.6; O2SAT 97
[2021-11-05 22:12] VITALS: BP 122/78; PULSE 76; RESP 16; TEMP 36.7
[2021-11-06 09:00] VITALS: BP 132/84; PULSE 79; RESP 18; TEMP 36.4
[2021-11-06] MEDS: ibuprofen 800 mg tablet PO (09:22)
[2021-11-06] MEDS: docusate sodium 100 mg Capsule PO (09:22)
[2021-11-06] MEDS: prenatal vitamin Capsule 1 CAP PO (09:22)
--- NOTE | 2021-11-06 10:32 | P.DS_ITS ---
Discharge Providers Date of Admission: 11/03/21 17:11 Date of Discharge: November 06, 2021 Attending Provider at Admission: Judy Forbes MD Attending Provider at Discharge: Judy Forbes MD Diagnoses at Discharge Discharge Diagnosis (1) GBS (group B Streptococcus carrier), +RV culture, currently : Status: Acute (2) Gestational diabetes: Status: Acute (3) Hepatitis C antibody positive in blood: Status: Acute Permanent problem details: hep c pcr-- below level of detection Reason for Visit Reason for Visit: Induction of Labor for Gestational Diabetes Hospital Course Hospital Course The patient was admitted for induction for diabetes. She received over 4 doses of ampicillin. She had spontaneous delivery of a term female . She did well and was ready for discharge on day #2 Physical Exam Narrative: No concerns this morning. Const: COMMON NORMALS: no acute distress, average body habitus, patient oriented x3, no limitations, healthy appearing, alert and well nourished GENERAL APPEARANCE: cooperative, comfortable, well kempt and well developed ORIENTATION/CONSCIOUSNESS: Yes awake, Yes oriented to person, Yes oriented to p lace and Yes oriented to time Resp: COMMON NORMALS: normal respiratory effort EFFORT & INSPECTION: Yes able to speak in complete sentences GI: COMMON NORMALS: Soft to palpation and non-tender PALPATION: Yes Soft to palpation Extremity: COMMON NORMALS: no calf tenderness Neuro: COMMON NORMALS: patient oriented x3 SENSORIUM/ORIENTATION: Yes alert, Yes oriented to person, Yes oriented to place and Yes oriented to time Psych: APPEARANCE: Yes well kempt Urinary Catheter Management: Franklin Latex: Cath Placed During This Visit: yes Reason for Continuing Indwelling Catheter: Required Immobilization for Trauma or Surgery or Anesthesia Urinary Catheter Date of Insertion: 11/04/21 Urinary Catheter Time of Insertion: 01:30 Discharge Data Studies Completed and Pending Laboratory Results WBC 12.5 10^3/uL (4.5-13.0) 11/05/21 07:20 RBC 4.29 10^6/uL (4.1-5.3) 11/05/21 07:20 Hgb 12.6 g/dL (11.5-15.3) 11/05/21 07:20 Hct 38.3 % (37.0-47.0) 11/05/21 07:20 MCV 89.3 fl (81-99) 11/05/21 07:20 MCH 29.4 pg (28.0-34.0) 11/05/21 07:20 MCHC 32.9 g/dL (30.0-36.0) 11/05/21 07:20 RDW 12.8 % (12.1-15.1) 11/05/21 07:20 Plt Count 200 10^3/cmm (130-400) 11/05/21 07:20 MPV 10.5 fL (7.4-10.4) H 11/05/21 07:20 Neut % (Auto) 68.9 % 11/03/21 17:31 Lymph % (Auto) 23.3 % 11/03/21 17:31 Maries % (Auto) 6.1 % 11/03/21 17:31 Eos % (Auto) 1.0 % 11/03/21 17:31 Baso % (Auto) 0.4 % 11/03/21 17:31 Neut # (Auto) 6.72 10^3/uL (1.8-8.0) 11/03/21 17:31 Lymph # (Auto) 2.3 10^3/uL (1.5-6.5) 11/03/21 17:31 Maries # (Auto) 0.6 10^3/uL (0.2-0.9) 11/03/21 17:31 Eos # (Auto) 0.1 10^3/uL (0.0-0.8) 11/03/21 17:31 Baso # (Auto) 0.0 10^3/uL (0.0-0.1) 11/03/21 17:31 Nucleated RBC % (auto) 0 % 11/03/21 17:31 Nucleated RBCs # 0.0 /100WBC 11/03/21 17:31 POC Glucose 85 mg/dL (70-110) 11/04/21 16:45 Coronavirus 229E (PCR) Not detected (NOT DETECT) 11/03/21 17:52 SARS-CoV-2 (PCR) Not detected (NOT DETECT) 11/03/21 17:52 Vitals Last Vital Signs Temp 97.5 F L 11/06/21 09:00 Pulse 79 11/06/21 09:00 Resp 18 11/06/21 09:00 BP 132/84 11/06/21 09:00 Pulse Ox 97 11/05/21 16:00 Discharge Plan Discharge Patient Disposition: Home Condition: Stable Prescriptions: Continued prenat.vits,roxy,[id number] Tablet 1 tab PO DAILY 0RF Discharge Orders: Discharge Order (Routine); Ordered 11/06/21 Ordered By: Judy Forbes Patient Instructions: Depression (DC), Bleeding (DC), Preeclampsia and Eclampsia After Delivery (GEN), COVID-19 and (GEN), OB Discharge Report, OB Food/Drug Interaction Guide, OB Care at Home, Opioid Safety, OB Home Care, OB Vaginal Deliveries - [facility], Abnormal Bleeding Discharge Attestations Time Spent in Discharge Care*: less than 30 min Status at Discharge: Cognitive status at discharge: cognitively intact , Behavioral status at discharge: cooperative , Quality Metrics Clinical Quality Measures [ No reported AMI, CVA or VTE this stay] Coding Level of Care Code Acute Chg FW DC note Diagnoses GBS (group B Streptococcus carrier), +RV culture, currently O99.820 Gestational diabetes O24.419 Hepatitis C antibody positive in blood R76.8
[2021-11-06 11:00] VITALS: BP 120/78; PULSE 100; RESP 16; TEMP 36.4
== END 2021-11-06 11:00 | disposition home or self-care (01) | DRG 807 ==
PROVIDERS: Admitting Provider Obstetrics & Gynecology; Visit Provider Obstetrics & Gynecology
DX: O99.824 Streptococcus B carrier state complicating childbirth (principal); Z37.0 Single live birth; O24.429 Gestational diabetes mellitus in childbirth, unspecified control; Z3A.39 39 weeks gestation of pregnancy; Z86.19 Personal history of other infectious and parasitic diseases
CPT/HCPCS: 36415; 36416; 51702; 82962; 85025; 85027; 87635; J0290; J1200; J2795

== ENCOUNTER → 2023-05-03 14:39 | Outpatient (BNVA) | payer BC, MEDICAID, SELFPAY | PROVIDERS: Visit Provider Nurse Practitioner Women's Health | DX: Z32.00 Encounter for pregnancy test, result unknown (principal) | CPT/HCPCS: 81025 ==

== ENCOUNTER → 2023-05-17 08:39 | Outpatient (BNVA) | payer BC, MEDICAID, SELFPAY | PROVIDERS: Visit Provider Nurse Practitioner Women's Health | DX: Z34.90 Encounter for supervision of normal pregnancy, unspecified, unspecified trimester (principal); R76.8 Other specified abnormal immunological findings in serum | CPT/HCPCS: 81000 ==

== ENCOUNTER → 2023-05-21 12:24 | Outpatient (BNVA) | payer BC, MEDICAID, SELFPAY | PROVIDERS: Visit Provider Nurse Practitioner Women's Health | DX: Z36.87 Encounter for antenatal screening for uncertain dates (principal) | CPT/HCPCS: 76817 ==

== ENCOUNTER → 2023-06-11 08:01 | Outpatient (BNVA) | payer BC, MEDICAID, SELFPAY | PROVIDERS: Visit Provider Obstetrics & Gynecology | DX: Z34.90 Encounter for supervision of normal pregnancy, unspecified, unspecified trimester (principal) | CPT/HCPCS: 82950; 84315; 87491; 87591 ==

== ENCOUNTER → 2023-07-17 09:05 | Outpatient (BNVA) | payer BC, MEDICAID, SELFPAY | PROVIDERS: Visit Provider Obstetrics & Gynecology | DX: Z34.90 Encounter for supervision of normal pregnancy, unspecified, unspecified trimester (principal) | CPT/HCPCS: 80307; 81000; 84443; 85025; 86592; 86762; 86803; 86850; 86900; 87086; 87340; 87522; 87806 ==

== ENCOUNTER → 2023-08-15 09:16 | Outpatient (BNVA) | payer BC, MEDICAID, SELFPAY | PROVIDERS: PCP Registered Nurse; Visit Provider Obstetrics & Gynecology | DX: Z34.82 Encounter for supervision of other normal pregnancy, second trimester (principal) | CPT/HCPCS: 76805 ==

== ENCOUNTER → 2023-08-22 10:28 | Outpatient (BNVA) | payer BC, MEDICAID, SELFPAY | PROVIDERS: PCP Registered Nurse; Visit Provider Obstetrics & Gynecology | DX: Z34.90 Encounter for supervision of normal pregnancy, unspecified, unspecified trimester (principal) | CPT/HCPCS: 81000 ==

== ENCOUNTER → 2023-09-13 11:00 | Outpatient (BNVA) | payer BC, MEDICAID, SELFPAY | PROVIDERS: PCP Registered Nurse; Visit Provider Nurse Practitioner Women's Health | DX: Z34.90 Encounter for supervision of normal pregnancy, unspecified, unspecified trimester (principal) | CPT/HCPCS: 81000 ==

== ENCOUNTER → 2023-10-09 07:55 | Outpatient (BNVA) | payer SELFPAY | PROVIDERS: PCP Registered Nurse; Visit Provider Obstetrics & Gynecology | DX: Z34.90 Encounter for supervision of normal pregnancy, unspecified, unspecified trimester (principal); Z86.32 Personal history of gestational diabetes; R76.8 Other specified abnormal immunological findings in serum | CPT/HCPCS: 82950; 84315 ==

== ENCOUNTER → 2023-10-11 08:00 | Outpatient (BNVA) | payer SELFPAY | PROVIDERS: PCP Registered Nurse; Visit Provider Obstetrics & Gynecology | DX: Z34.90 Encounter for supervision of normal pregnancy, unspecified, unspecified trimester (principal) | CPT/HCPCS: 82951; 82952; 86803; 87522 ==

== ENCOUNTER → 2023-10-23 07:55 | Outpatient (BNVA) | payer SELFPAY | PROVIDERS: PCP Registered Nurse; Visit Provider Obstetrics & Gynecology | DX: Z34.90 Encounter for supervision of normal pregnancy, unspecified, unspecified trimester (principal) | CPT/HCPCS: 84315; 87086 ==

== ENCOUNTER 2023-11-06 08:47 | Outpatient (CLI) | payer MEDICAID, SELFPAY ==
[2023-11-06 08:50] VITALS: BMI 30.7
[2023-11-06 09:01] VITALS: BP 121/74; PULSE 88
[2023-11-06 09:16] VITALS: BP 116/67; PULSE 80
== END 2023-11-06 09:30 | disposition home or self-care (01) ==
LOC: OPOB 08:50 → OBGYN 08:51
PROVIDERS: PCP Registered Nurse; Visit Provider Obstetrics & Gynecology
DX: O24.419 Gestational diabetes mellitus in pregnancy, unspecified control (principal); Z3A.00 Weeks of gestation of pregnancy not specified
CPT/HCPCS: 59025; 84315

== ENCOUNTER 2023-11-09 10:00 | Outpatient (CLI) | payer MEDICAID, SELFPAY ==
[2023-11-09 10:19] VITALS: BP 119/61; PULSE 88
[2023-11-09 10:27] VITALS: RESP 16; BMI 30.9
[2023-11-09 10:39] VITALS: BP 107/57; PULSE 86
== END 2023-11-09 10:54 | disposition home or self-care (01) ==
LOC: OPOB 10:11 → OBGYN 10:12
PROVIDERS: PCP Registered Nurse; Visit Provider Obstetrics & Gynecology
DX: O24.419 Gestational diabetes mellitus in pregnancy, unspecified control (principal); Z3A.00 Weeks of gestation of pregnancy not specified
CPT/HCPCS: 59025

== ENCOUNTER 2023-11-13 13:00 | Outpatient (CLI) | payer MEDICAID, SELFPAY ==
[2023-11-13 13:00] VITALS: BMI 30.8
[2023-11-13 13:23] VITALS: BP 114/67; PULSE 91
[2023-11-13 13:43] VITALS: BP 110/72; PULSE 90
== END 2023-11-13 13:51 | disposition home or self-care (01) ==
LOC: OPOB 13:09 → OBGYN 13:10
PROVIDERS: PCP Registered Nurse; Visit Provider Obstetrics & Gynecology
DX: O24.419 Gestational diabetes mellitus in pregnancy, unspecified control (principal); Z3A.00 Weeks of gestation of pregnancy not specified
CPT/HCPCS: 59025

== ENCOUNTER 2023-11-15 09:02 | Outpatient (CLI) | payer MEDICAID, SELFPAY ==
[2023-11-15 09:00] VITALS: BMI 31.8
[2023-11-15 09:22] VITALS: BP 121/74; PULSE 82
[2023-11-15 09:42] VITALS: BP 116/67; PULSE 92
[2023-11-15 10:06] VITALS: BP 116/67; PULSE 92
== END 2023-11-15 09:55 | disposition home or self-care (01) ==
LOC: OPOB 09:06 → OBGYN 09:07
PROVIDERS: PCP Registered Nurse; Visit Provider Obstetrics & Gynecology
DX: O24.419 Gestational diabetes mellitus in pregnancy, unspecified control (principal); Z3A.00 Weeks of gestation of pregnancy not specified
CPT/HCPCS: 59025; 84315; 99211

== ENCOUNTER 2023-11-19 15:31 | Outpatient (CLI) | payer MEDICAID, SELFPAY ==
[2023-11-19 15:44] VITALS: BP 124/68; PULSE 86; TEMP 35.4
[2023-11-19 15:54] VITALS: BMI 31.4
[2023-11-19 15:59] VITALS: BP 120/62; PULSE 88
[2023-11-19 16:14] VITALS: BP 120/62; PULSE 88
== END 2023-11-19 16:18 | disposition home or self-care (01) ==
LOC: OPOB 15:36 → OBGYN 15:37
PROVIDERS: PCP Registered Nurse; Visit Provider Obstetrics & Gynecology
DX: O24.419 Gestational diabetes mellitus in pregnancy, unspecified control (principal); Z3A.00 Weeks of gestation of pregnancy not specified
CPT/HCPCS: 59025; 84315

== ENCOUNTER 2023-11-23 18:19 | Outpatient (CLI) | payer MEDICAID, SELFPAY ==
[2023-11-23 18:41] VITALS: BMI 31.2
[2023-11-23 18:43] VITALS: BP 126/67; PULSE 82
[2023-11-23 18:44] VITALS: BP 126/67; PULSE 89; RESP 17; TEMP 36.6
== END 2023-11-23 18:58 ==
LOC: OPOB 18:25 → OBGYN 18:33
PROVIDERS: PCP Registered Nurse; Visit Provider Obstetrics & Gynecology
DX: O24.419 Gestational diabetes mellitus in pregnancy, unspecified control (principal); Z3A.00 Weeks of gestation of pregnancy not specified
CPT/HCPCS: 59025

== ENCOUNTER 2023-11-28 19:13 | Outpatient (CLI) | payer MEDICAID, SELFPAY ==
[2023-11-28 19:10] VITALS: BMI 31.4
[2023-11-28 19:20] VITALS: BP 127/77; PULSE 94
[2023-11-28 19:22] VITALS: RESP 16
[2023-11-28 19:38] VITALS: BP 130/66; PULSE 82
== END 2023-11-28 19:52 ==
LOC: OPOB 19:13 → OBGYN 19:14
PROVIDERS: PCP Registered Nurse; Visit Provider Obstetrics & Gynecology
DX: O26.899 Other specified pregnancy related conditions, unspecified trimester (principal); Z3A.00 Weeks of gestation of pregnancy not specified
CPT/HCPCS: 59025; 99211

== ENCOUNTER 2023-11-30 18:15 | Outpatient (CLI) | payer MEDICAID, SELFPAY ==
[2023-11-30 18:33] VITALS: BP 125/80; PULSE 96; RESP 16; BMI 31.0
[2023-11-30 18:49] VITALS: BP 125/69; PULSE 93
[2023-11-30 19:06] VITALS: BP 114/69; PULSE 105; RESP 18
== END 2023-11-30 19:06 | disposition home or self-care (01) ==
LOC: OPOB 18:16 → OBGYN 18:32
PROVIDERS: PCP Registered Nurse; Visit Provider Obstetrics & Gynecology
DX: O24.419 Gestational diabetes mellitus in pregnancy, unspecified control (principal); Z3A.00 Weeks of gestation of pregnancy not specified
CPT/HCPCS: 59025; 99211

== ENCOUNTER → 2023-12-05 11:42 | Outpatient (BNVA) | payer MEDICAID, SELFPAY | PROVIDERS: PCP Registered Nurse; Visit Provider Nurse Practitioner Women's Health | DX: O24.419 Gestational diabetes mellitus in pregnancy, unspecified control (principal); Z3A.33 33 weeks gestation of pregnancy | CPT/HCPCS: 76815; 76819; 84315; 87081 ==

== ENCOUNTER 2023-12-07 12:15 | Outpatient (CLI) | payer MEDICAID, SELFPAY ==
[2023-12-07 12:20] VITALS: RESP 17; BMI 30.8
[2023-12-07 12:32] VITALS: BP 119/66; PULSE 88; TEMP 36
[2023-12-07 12:52] VITALS: BP 121/75; PULSE 103
== END 2023-12-07 13:05 | disposition home or self-care (01) ==
LOC: OPOB 12:23 → OBGYN 12:24
PROVIDERS: PCP Registered Nurse; Visit Provider Obstetrics & Gynecology
DX: O24.419 Gestational diabetes mellitus in pregnancy, unspecified control (principal); Z3A.00 Weeks of gestation of pregnancy not specified
CPT/HCPCS: 59025

== ENCOUNTER 2023-12-10 11:51 | Outpatient (CLI) | payer MEDICAID, SELFPAY ==
[2023-12-10 12:01] VITALS: BP 132/78; PULSE 92
[2023-12-10 12:03] VITALS: RESP 15; TEMP 36.6; TEMP 36.7
[2023-12-10 12:06] VITALS: BMI 30.3
[2023-12-10 12:16] VITALS: BP 114/71; PULSE 86
[2023-12-10 12:30] VITALS: BP 114/71; PULSE 86; RESP 17; TEMP 36.6
== END 2023-12-10 12:30 | disposition home or self-care (01) ==
LOC: OPOB 11:56 → OBGYN 11:58
PROVIDERS: PCP Registered Nurse; Visit Provider Obstetrics & Gynecology
DX: O24.419 Gestational diabetes mellitus in pregnancy, unspecified control (principal); Z3A.00 Weeks of gestation of pregnancy not specified
CPT/HCPCS: 59025

== ENCOUNTER → 2023-12-12 15:12 | Outpatient (BNVA) | payer MEDICAID, SELFPAY | PROVIDERS: PCP Registered Nurse; Visit Provider Obstetrics & Gynecology | DX: O24.419 Gestational diabetes mellitus in pregnancy, unspecified control (principal); Z3A.33 33 weeks gestation of pregnancy | CPT/HCPCS: 76819; 84315 ==

== ENCOUNTER 2023-12-13 19:06 | Inpatient (IN) | payer MEDICAID, SELFPAY ==
[2023-12-13] VITALS (58 sets, daily range): BP systolic 93–145; BP diastolic 59–92; PULSE 67–137; TEMP 36.2–36.9; O2SAT 80–100; BMI 36.1
[2023-12-13] MEDS: oxytocin 30 UNIT/500 ML BAG IV (11:33)
[2023-12-13] MEDS: dextrose 5%-lactated ringers 1,000 ML 125 ML IV ×2 (11:34→20:08)
[2023-12-13 11:47] LABS: Basophils % 0.4 %; Eosinophils # 0.2 10^3/uL (0.0-0.8); Eosinophils % 1.9 %; Hematocrit 34.6 % (36-47); Lymphocytes # 2.2 10^3/uL (0.8-4.8); Lymphocytes % 25.7 %; Mean Corpuscular HGB Conc 32.4 g/dL (30-55); Mean Corpuscular Hemoglobin 26.9 pg (27-33); Mean Platelet Volume 10.9 fL (7.4-10.4); Monocytes # 0.5 10^3/uL (0.2-0.9); Monocytes % 5.4 %; Neutrophils # 5.55 10^3/uL (1.8-7.7); Neutrophils % 66.1 %; Nucleated Red Blood Cells % 0 %; Platelet Count 220 10^3/cmm (157-399); Red Blood Count 4.17 10^6/uL (3.85-5.65); Red Cell Distribution Width 12.6 % (12.1-15.1); White Blood Count 8.38 10^3/uL (3.29-11.43)
[2023-12-13 13:26] LABS: Glucose Point of Care 82 mg/dL (70-110)
[2023-12-13] MEDS: lactated ringers 1,000 ML 999 ML IV ×2 (16:53→23:31)
[2023-12-13 17:23] LABS: Glucose Point of Care 73 mg/dL (70-110)
[2023-12-13] MEDS: ROPivacaine premix 100 MG/50 ML PREMIX 13 MG EPIDURAL (17:51)
--- NOTE | 2023-12-13 17:59 | P.ANESASSM_ITS ---
Pre-Anesthetic Assessment Height/Weight: Height 1.52 m Weight 83.915 kg Temp Pulse BP Pulse Ox O2 Del Method 98.1 F 74 128/74 100 Room Air 12/13/23 16:54 12/13/23 17:56 12/13/23 17:56 12/13/23 17:47 12/13/23 10:07 Familial anesthetic complications: none Was Beta Rigo taken within 24 hours: N/A Was Clonidine taken within 24 hours: N/A Social No alcohol and No tobacco Exam alert, oriented x 3, clear to auscultation bilaterally and regular rate & rhythm Airway Submandibular: within normal limits Cervical ROM: within normal limits Mallampati: Class II Dentition: full Hepatic Hepatitis (C) Metabolic Gestational diabetes Anesthetic Plan ASA status: 2 Anesthesia: Regional (specify below) (Labor epidural) Medications/Allergies Home Medications Medication Instructions Recorded Confirmed Last Taken Type No Known Home Medications 11/09/23 12/12/23 Unknown History Allergies Allergy/AdvReac Type Severity Reaction Status Date / Time No Known Allergies Allergy Verified 12/12/23 15:22 Current Medications Generic Name Dose Route Start Last Admin Trade Name Freq PRN Reason Stop Dose Admin Dextrose/Lactated Ringer's 1,000 mls @ 125 mls/hr 12/13/23 11:30 12/13/23 11:34 Dextrose 5%-Lactated Ringers IV 125 mls/hr .Q8H MARISOL Administration Oxytocin 30 unit in 500 mls @ 1 mls/hr 12/13/23 11:30 12/13/23 17:00 Pitocin IV 18 milliunit/min .Q24H MARISOL 18 mls/hr Titration Protocol 1 MILLIUNIT/MIN Lactated Ringer's 1,000 mls @ 999 mls/hr 12/13/23 16:47 12/13/23 16:53 Lactated Ringers IV 999 mls/hr .Q1H1M PRN Administration See label comments PFSH Anesthesia Medical History History of gestational diabetes Had GDM in third in 2019; managed with insulin Hepatitis C antibody positive in blood hep c pcr-- below level of detection Surgical History History of appendectomy (~08/2020) [place], [place] by Dr. Jimenez. History of tonsillectomy (~2004) Family History Family/Other Down syndrome Paternal uncle Autism Paternal uncle Grandmother Cancer MGM- Breast CA; unknown age of dx Social History Substance/Drug Use: former Date of last use: Previous use of marijuana, last used 05/2019 Additional social history: Well balanced diet Female Reproductive History Date of last menstrual period: 03/27/23 : 5 Data Anesthesia 12/13/23 11:08 Short CBC 12/13/23 Range/Units 11:08 WBC 8.38 (3.29-11.43) 10^3/uL Hgb 11.20 L (11.27-16.99) g/dL Hct 34.6 L (36-47) % MCV 83.0 L (85-98) fl Plt Count 220 (157-399) 10^3/cmm Neut % (Auto) 66.1 % Neut # (Auto) 5.55 (1.8-7.7) 10^3/uL Blood Bank 12/13/23 11:17 Blood Type O Positive Rho(D) Type Rh positive Antibody Screen Negative Cardiac Studies: 2 No Data to Display Anesthesia Procedures Epidural Time Out Performed: Yes Consents Signed: Procedure Consent Consent: requested by attending/covering physician, from patient, risks and benefits reviewed and patient agrees to proceed Lumbar Level: L3-L4 Epidural position: sitting Epidural procedure: sterile prep of area, 1% lidocaine to numb the area, 18 g needle, neg for paresthesia, test dose given, 1.5% xylocaine 1:200k epi, placed PCEA, no systemic response, sterile dressing applied and 0.2% Ropiavacaine @ mls/hr (13) Additional Comments: Bolused 5mls of 2% lido PF, FLORESITA at 5cm, cath at 10cm
[2023-12-13] MEDS: ondansetron 2 mg/ML SDV 2 mL 4 MG IVP (18:06)
--- NOTE | 2023-12-13 19:40 | PM.OBGYHP ---
Providers/Chief Complaint Admitting Physician: Bentley Simpson MD Primary PHOTOGRAPH ENLARGER: Bentley Simpson MD Primary Care Provider: CATY Khanna Chief Complaint: IOL HPI PHOTOGRAPH ENLARGER History of Present Illness 23 y.o. EDC January 01, 2024 At 37 w 2 d h/o GDM in past pregnancies early 1-h glucola done this was normal 1-h glucola repeated 2--24 - 189 3-h GTT - FBS normal; 2 of 3 values elevated Patient was started on accuchecks fasting accuchecks was around 100 1-h postprandial values, several were above 200; although most were normal Patient was started on diet and insulin However, patient states she was not able to get insulin because of insurance Has not been compliant with accuchecks Did not bring in accuchecks at last visit Also developed diffuse severe itching of chest, abdomen, hands and feet x one week without a rash clinically c/w cholestasis of now admitted for induction of labor due to noncompliance with monitoring and treating gestational diabetes and cholestasis of Present Details : 5 Para: 2 Date of Last Menstrual Period: 03/27/23 Calculated Date of Delivery: 01/01/24 Gestational Age Based on Last Menstrual Period: 37 Labs Rubella: Immune RPR: Negative GBS: Negative Specific History Indications for Section: Malpresentation Medications/Allergies Home Medications Medication Instructions Recorded Confirmed Last Taken Type No Known Home Medications 11/09/23 12/12/23 Unknown History Allergies Allergy/AdvReac Type Severity Reaction Status Date / Time No Known Allergies Allergy Verified 12/12/23 15:22 PFS PHOTOGRAPH ENLARGER PFSH: Medical History History of gestational diabetes Had GDM in third in 2019; managed with insulin Hepatitis C antibody positive in blood hep c pcr-- below level of detection Surgical History History of appendectomy (~08/2020) [place], [place] by Dr. Jimenez. History of tonsillectomy (~2004) Family History Family/Other Down syndrome Paternal uncle Autism Paternal uncle Grandmother Cancer MGM- Breast CA; unknown age of dx Social History Substance/Drug Use: former Date of last use: Previous use of marijuana, last used 05/2019 Additional social history: Well balanced diet Other Female Reproductive History: Hx Age of Menarche: 11 History History History 5 Term 2 0 Miscarriages/Ectopic 2 Living Children 2 Care WEI Calculator Estimated Delivery Date Method Current WG Current Estimate 01/01/24 LMP (Certain) 37w 3d Other Estimates 01/05/24 Ultrasound #1 36w 6d Vitals/I&O/Wt Last Vital Signs Temp 98.3 F 12/14/23 02:05 Pulse 49 L 12/14/23 08:05 Resp 17 12/14/23 02:28 BP 130/78 12/14/23 08:05 Pulse Ox 96 12/14/23 02:05 O2 Del Method Room Air 12/14/23 02:28 12/13/23 12/14/23 12/14/23 22:59 06:59 14:59 Intake Total 1104.767 / 8768.752 6650.067 / 3932.734 Output Total 1700 / 1700 Balance 1104.767 / 7232.476 7649.067 / 2232.734 Weight last 48 hrs Weight 185 lb Physical Exam Narrative: Weight 160 lbs, 5? VS normal Awake, alert Lungs: clear Cor: RRR Abd: nontender FH 36 cm, cephalic Cervix: 2 cm / 25% / -3 / posterior Urinary Catheter Management: Franklin Latex: Cath Placed During This Visit: yes Reason for Continuing Indwelling Catheter: Required Immobilization for Trauma or Surgery or Anesthesia Urinary Catheter Date of Insertion: 12/13/23 Urinary Catheter Time of Insertion: 18:15 Data 12/13/23 11:08 Results Labs OB ([facility]): Obstetrics US 09/15/21 Obstetrics US/Biophysical Profile 12/12/23 Blood Type O Positive 12/13/23 Antibody Screen Negative 12/13/23 Hct 34.6 % (36-47) L 12/13/23 Hgb 11.20 g/dL (11.27-16.99) L 12/13/23 Rho(D) Type Rh positive 12/13/23 Plt Count 220 10^3/cmm (157-399) 12/13/23 Hep Bs Antigen Non-reactive (Nonreactive) 07/17/23 Hep B Core IgM Ab Non-Reactive (NONREACTIVE) 12/15/18 Hepatitis C Antibody Reactive (Nonreactive) H 10/11/23 Rubella IgG Antibody 336.8 IU/mL (0.0-10.0) H 07/17/23 RPR Nonreactive (Nonreactive) 07/17/23 HIV 1&2 Ab & HIV 1 Ag Non-reactive (Non-Reactiv) 07/17/23 TSH 2.14 uIU/mL (0.27-4.20) 07/17/23 C.trachomatis RNA (TMA) Not detected (NOT DETECTED) 06/11/23 N.gonorrhoeae RNA (TMA) Not detected (NOT DETECTED) 06/11/23 T. vaginalis Amp RNA Not detected (NOT DETECTED) 06/11/23 Chlamydia/GC Comment See note 06/11/23 Cystic Fibrosis Screen Negative 07/17/23 Glucose Tolerance mg/dL 12/08/19 Glucose 1 Hr 50 gm 189 mg/dL (85-140) H 10/09/23 Gest Glucose Tolerance mg/dL 10/11/23 Ser , Semi-Qnt 4207.00 mIU/mL 03/10/21 HCG, Qual Positive (Negative) H 05/03/23 Urine Opiates Screen Negative ng/mL (Negative) 07/17/23 Ur Barbiturates Screen Negative ng/mL (Negative) 07/17/23 Ur Phencyclidine Scrn Negative ng/mL (Negative) 07/17/23 Ur Amphetamines Screen Negative ng/mL (Negative) 07/17/23 U Benzodiazepines Scrn Negative ng/mL (Negative) 07/17/23 Urine Cocaine Screen Negative ng/mL (Negative) 07/17/23 U Marijuana (THC) Screen Negative ng/mL (Negative) 07/17/23 Micro Urine Specimen 10/23/23 A&P Assessment and plan (1) : 37 w 2 d Qualifiers: Weeks of gestation: 33 weeks Qualified Code(s): Z3A.33 - 33 weeks gestation of (2) Gestational diabetes: h/o GDM in past, required insulin now with GDM present patient noncompliant with accuchecks, diet, and insulin (3) Cholestasis during : now admitted for induction of labor plan start Pitocin per protocol Attestations Medical Necessity Statement*: patient at 37 w 2 d with gestational diabetes and cholestasis of , admitted for induction of labor Coding Level of Care Code Acute Code for Chg Fwd Diagnoses 33 weeks gestation of Z3A.33 Weeks of gestation: 33 weeks Gestational diabetes O24.419 Cholestasis during O26.649 Time Spent (min) 45
[2023-12-13] MEDS: acetaminophen 325 mg Tablet 650 MG PO (20:07)
[2023-12-13 22:15] LABS: Glucose Point of Care 82 mg/dL (70-110)
--- NOTE | 2023-12-13 22:20 | P.PN_ITS ---
PHYSICIAN COMPENSATION ANALYST Subjective 2 Subjective: Interval history: Fetus reassuring Cervix: 5 cm / 90% / -2 / posterior AROM, clear fluid Continue Pitocin Labor: Station: -3 Amniotic Membrane Status: Ruptured Monitor Mode: External Contraction Pattern: Irregular Vitals/I&O/Wt Last Vital Signs Temp 98.3 F 12/14/23 02:05 Pulse 59 L 12/14/23 08:35 Resp 17 12/14/23 02:28 BP 123/87 12/14/23 08:35 Pulse Ox 96 12/14/23 02:05 O2 Del Method Room Air 12/14/23 02:28 12/13/23 12/14/23 12/14/23 22:59 06:59 14:59 Intake Total 1104.767 / 6909.354 6675.067 / 3932.734 Output Total 1700 / 1700 Balance 1104.767 / 2596.676 4947.067 / 2232.734 Weight last 48 hrs Weight 185 lb Physical Exam 2 Urinary Catheter Management: Franklin Latex: Cath Placed During This Visit: yes Reason for Continuing Indwelling Catheter: Required Immobilization for Trauma or Surgery or Anesthesia Urinary Catheter Date of Insertion: 12/13/23 Urinary Catheter Time of Insertion: 18:15 Data 12/13/23 11:08 A&P Assessment and plan (1) : Qualifiers: Weeks of gestation: 33 weeks Qualified Code(s): Z3A.33 - 33 weeks gestation of (2) Gestational diabetes: (3) Cholestasis during : Attestations 2 Medical Necessity Statement*: patient at 37 w 2 d with gestational diabetes and cholestasis of , admitted for induction of labor Coding Level of Care Code Acute Code for Chg Fwd Diagnoses 33 weeks gestation of Z3A.33 Weeks of gestation: 33 weeks Gestational diabetes O24.419 Cholestasis during O26.649 Time Spent (min) 30
[2023-12-14] VITALS (38 sets, daily range): BP systolic 115–151; BP diastolic 55–94; PULSE 49–105; RESP 15–17; TEMP 36.4–36.8; O2SAT 92–97
[2023-12-14] MEDS: metoclopramide 5 mg/mL SDV 2 mL 10 MG IV (00:30)
[2023-12-14] MEDS: famotidine 20 mg/2 mL INJ IVP (00:30)
[2023-12-14] MEDS: citric acid-sodium citrate 30 mL UDC (00:30)
--- NOTE | 2023-12-14 00:50 | PM.OBGYPN ---
TURBO GENERATOR OILER Subjective Subjective: Interval history: Fetus reassuring Cx: hand / arm presenting; head at 0 station Will proceed with emergency for delivery Procedure and risks explained to patient Risks include, but not limited to, infection, bleeding, injury to internal organs, anesthesia, blood transfusions Patient understands and wants to proceed Labor: Station: -3 Amniotic Membrane Status: Ruptured Monitor Mode: External Contraction Pattern: Irregular Vitals/I&O/Wt Last Vital Signs Temp 98.3 F 12/14/23 02:05 Pulse 59 L 12/14/23 08:35 Resp 17 12/14/23 02:28 BP 123/87 12/14/23 08:35 Pulse Ox 96 12/14/23 02:05 O2 Del Method Room Air 12/14/23 02:28 12/13/23 12/14/23 12/14/23 22:59 06:59 14:59 Intake Total 1104.767 / 5452.240 3561.067 / 3932.734 Output Total 1700 / 1700 Balance 1104.767 / 4199.881 7849.067 / 2232.734 Weight last 48 hrs Weight 185 lb Physical Exam Urinary Catheter Management: Franklin Latex: Cath Placed During This Visit: yes Reason for Continuing Indwelling Catheter: Required Immobilization for Trauma or Surgery or Anesthesia Urinary Catheter Date of Insertion: 12/13/23 Urinary Catheter Time of Insertion: 18:15 Data 12/13/23 11:08 A&P Assessment and plan (1) Compound presentation of fetus: Attestations Medical Necessity Statement*: patient in active labor, with hand presenting Coding Level of Care Code Acute Code for Chg Fwd Diagnoses Compound presentation of fetus O32.6XX0 Time Spent (min) 30
--- NOTE | 2023-12-14 02:50 | P.OP_ITS ---
Operative Report Date of procedure: December 14, 2023 Pre-op diagnosis: 37 w 2 d Gestational diabetes Cholestasis of induction of labor cervix at 5 cm arm presenting Post-op diagnosis: same Post-op findings: clear amniotic fluid vigorous male infant normal uterus, tubes, and ovaries Procedure done: primary low-transverse Implants: none Specimens removed/disposition: placenta and cord, discarded cord gases and blood, sent to lab Surgeon: Bentley Simpson MD Anesthesia: General and Epidural Estimated blood loss (mL): 500 Complications: none Condition: stable Disposition: floor Brief History: 22 y.o. With gestational diabetes, noncompliant with accuchecks and insulin And cholestasis of admitted for induction of labor Cx at 5 cm Noted to have arm presenting in vagina and head at 0 station Procedure: The patient was taken to the operating room and placed supine in the left lateral tilt position. a osorio catheter were already in place. Time-out verification was carried Out. The abdomen was prepped and draped in the usual sterile fashion. General anesthesia was induced. A Pfannenstiel incision was made and carried down through skin and subcutaneous tissue and fascia. The fascial incision was extended laterally with Mares scissors. The fascia was from the underlying rectus muscles. The rec tus muscles were split in the midline. The peritoneum was entered bluntly avoiding underlying organs. A bladder flap was created. An Jason-O retractor was placed. A low-transverse uterine incision was made and extended laterally and bluntly avoiding the uterine vessels. Clear amniotic fluid was encountered. The baby was delivered in cephalic presentation with arm extracted atraumatically. The baby was suctioned, the cord was clamped and cut and the baby was handed to pediatric staff. A segment of cord was obtained for cord gas, cord blood was obtained. The placenta was manually removed intact. The uterine cavity was bluntly curetted with wet laps. The uterine incision was then closed with a continuous interlocking stitch of O-chromic. Adequate hemostasis was seen. Inspection of the uterine incision again showed good hemostasis. The fascia was then closed with a continuous stitch of O-Vicryl. Additional interrupted stitches of O-Vicryl were used for fascial closure. The subcutaneous tissue was irrigated and inspected for hemostasis. The skin was then closed with Insorb sara. Postoperative condition: stable EBL: 500 cc Complications: none Sponge and instruments counts correct x two
[2023-12-14] MEDS: dextrose 5%-lactated ringers 1,000 ML 125 ML IV (03:35)
[2023-12-14] MEDS: ketorolac 30 mg/mL INJ IVP ×4 (03:35→20:20)
[2023-12-14] MEDS: hyDROXYzine 25 mg Capsule 50 MG PO (04:10)
--- NOTE | 2023-12-14 05:20 | PC.NURSE ---
This RN entered room at approximately 0010 to perform SVE. SVE performed by this RN 8.5/80/-3. Upon exam this RN noted to feel infants arm and hand in the vaginal vault. This RN called out for charge nurse Robert Montemayor. Robert Montemayor performed SVE to verify concerns. Pitocin was then stopped. Robert Montemayor remained with patient while Juana Nichols called Dr. Simpson. Physician was notified of SVE and compound presentation at 0012. Physician stated he was downstairs and would be upstairs rafaela. Physician was in room at approx 0015 and performed SVE to confirm presentation. Decision to perform section was made at approx 0017. Orders were then put in for a primary section. Patient was transported to OR at 0028. Cut time was at 0041. Baby 0045. Placenta 0047. End time 0125. PACU 0133. Infant apgars 8/9. This RN remained with patient in PACU until 0205. See chart for PACU recovery vital signs.
[2023-12-14] MEDS: ondansetron 2 mg/ML SDV 2 mL 4 MG IVP (07:17)
[2023-12-14] MEDS: docusate sodium 100 mg Capsule PO ×2 (10:47→18:29)
[2023-12-14] MEDS: diphenhydrAMINE 50 mg/mL SDV 1mL 25 MG IVP (14:21)
[2023-12-14 14:56] LABS: Hematocrit 34.9 % (36-47); Mean Corpuscular HGB Conc 31.2 g/dL (30-55); Mean Corpuscular Hemoglobin 26.6 pg (27-33); Mean Corpuscular Volume 85.1 fl (85-98); Mean Platelet Volume 11.4 fL (7.4-10.4); Platelet Count 233 10^3/cmm (157-399); Red Cell Distribution Width 12.6 % (12.1-15.1); White Blood Count 12.95 10^3/uL (3.29-11.43)
[2023-12-14] MEDS: HYDROcodone-acetaminophen 5-325 mg Tablet PO (20:22)
[2023-12-15] MEDS: HYDROcodone-acetaminophen 5-325 mg Tablet PO ×4 (02:27→20:18)
[2023-12-15 04:18] VITALS: BP 125/85; PULSE 69; RESP 16; TEMP 35.8
[2023-12-15] MEDS: PRENATAL VIT NO.130/IRON/FOLIC 1 EACH TABLET PO (07:48)
[2023-12-15 07:50] VITALS: BP 135/87; PULSE 86
[2023-12-15] MEDS: ibuprofen 800 mg tablet PO ×2 (14:59→22:06)
[2023-12-15 15:01] VITALS: BP 135/87; PULSE 83
[2023-12-15 22:08] VITALS: BP 154/88; PULSE 70
[2023-12-16] MEDS: simethicone 80 mg Chew PO (00:04)
[2023-12-16] MEDS: HYDROcodone-acetaminophen 5-325 mg Tablet PO ×3 (00:04→12:20)
[2023-12-16 04:51] VITALS: BP 115/77; PULSE 70; RESP 16; TEMP 36
[2023-12-16] MEDS: ibuprofen 800 mg tablet PO (07:26)
[2023-12-16] MEDS: PRENATAL VIT NO.130/IRON/FOLIC 1 EACH TABLET PO (07:26)
[2023-12-16] MEDS: docusate sodium 100 mg Capsule PO (07:26)
[2023-12-16 09:56] VITALS: BP 158/80; PULSE 96
--- NOTE | 2023-12-16 11:57 | P.DS_ITS ---
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 Patient's postoperative course was uneventful, patient is tolerating regular diet voiding and has had several stools. She denies headaches, blurred vision, shortness of breath or chest pain. She is caring for the baby and breast-feeding without assistance. She states she is ready for discharge, she has family to assist with the baby at home as well as her other children. Her vital signs have remained stable and afebrile. Discharge expectations have been reviewed with patient, no heavy lifting pushing or pulling no sex douching or tampons x 6 weeks. Patient is to shower only keeping incision clean and dry. She is to continue her vitamins and iron which she has at home, and to use Tylenol and ibuprofen as needed at home for pain relief. Patient verbalizes understanding. Status: Acute Reason for Visit Reason for Visit: IOL Brief History: See above hospital stay note Hospital Course Hospital Course See above hospital stay note. Information Peripartum Data: Infant Delivery Method: Physical Exam Const: COMMON NORMALS: no acute distress, patient oriented x3, healthy appearing and well nourished Resp: COMMON NORMALS: normal respiratory effort and clear to auscultation bilaterally AUSCULTATION: clear to auscultation bilaterally Cardio: COMMON NORMALS: regular rate and regular rhythm RATE: regular rate RHYTHM: regular rhythm Back/Pelvis: OTHER: Abdomen?soft, nondistended. Incision clean dry and intact. Lochia light. Extremity: COMMON NORMALS: no clubbing, cyanosis or edema and no calf tenderness Neuro: COMMON NORMALS: patient oriented x3 Urinary Catheter Management: [place] Latex: Cath Placed During This Visit: yes, but has since been removed by the nurse Reason for Continuing Indwelling Catheter: Decision to DC Catheter Urinary Catheter Date of Insertion: 12/13/23 Urinary Catheter Time of Insertion: 18:15 Date Urinary Catheter Removed: 12/14/23 Time Urinary Catheter Discontinued: 12:47 History History History 5 Term 2 0 Miscarriages/Ectopic 2 Living Children 2 Discharge Data Studies Completed and Pending Laboratory Results WBC 12.95 10^3/uL (3.29-11.43) H 12/14/23 14:30 RBC 4.10 10^6/uL (3.85-5.65) 12/14/23 14:30 Hgb 10.90 g/dL (11.27-16.99) L 12/14/23 14:30 Hct 34.9 % (36-47) L 12/14/23 14:30 MCV 85.1 fl (85-98) 12/14/23 14:30 MCH 26.6 pg (27-33) L 12/14/23 14:30 MCHC 31.2 g/dL (30-55) 12/14/23 14:30 RDW 12.6 % (12.1-15.1) 12/14/23 14:30 Plt Count 233 10^3/cmm (157-399) 12/14/23 14:30 MPV 11.4 fL (7.4-10.4) H 12/14/23 14:30 Neut % (Auto) 66.1 % 12/13/23 11:08 Lymph % (Auto) 25.7 % 12/13/23 11:08 [place] % (Auto) 5.4 % 12/13/23 11:08 Eos % (Auto) 1.9 % 12/13/23 11:08 Baso % (Auto) 0.4 % 12/13/23 11:08 Neut # (Auto) 5.55 10^3/uL (1.8-7.7) 12/13/23 11:08 Lymph # (Auto) 2.2 10^3/uL (0.8-4.8) 12/13/23 11:08 [place] # (Auto) 0.5 10^3/uL (0.2-0.9) 12/13/23 11:08 Eos # (Auto) 0.2 10^3/uL (0.0-0.8) 12/13/23 11:08 Baso # (Auto) 0.0 10^3/uL (0.0-0.1) 12/13/23 11:08 Nucleated RBC % (auto) 0 % 12/13/23 11:08 Nucleated RBCs # 0.0 /100WBC 12/13/23 11:08 POC Glucose 82 mg/dL (70-110) 12/13/23 22:10 Blood Type O Positive 12/13/23 11:17 Rho(D) Type Rh positive 12/13/23 11:17 Antibody Screen Negative 12/13/23 11:17 Vitals Last Vital Signs Temp 96.8 F L 12/16/23 04:51 Pulse 96 12/16/23 09:56 Resp 16 12/16/23 04:51 BP 158/80 12/16/23 09:56 Pulse Ox 96 12/14/23 02:05 O2 Del Method Room Air 12/14/23 02:28 Results Labs OB ([facility]): Obstetrics US 09/15/21 Obstetrics US/Biophysical Profile Blood Type O Positive 12/13/23 Antibody Screen Negative 12/13/23 Hct 34.9 % (36-47) L 12/14/23 Hgb 10.90 g/dL (11.27-16.99) L 12/14/23 Rho(D) Type Rh positive 12/13/23 Plt Count 233 10^3/cmm (157-399) 12/14/23 Hep Bs Antigen Non-reactive (Nonreactive) 07/17/23 Hep B Core IgM Ab Non-Reactive (NONREACTIVE) 12/15/18 Hepatitis C Antibody Reactive (Nonreactive) H 10/11/23 Rubella IgG Antibody 336.8 IU/mL (0.0-10.0) H 07/17/23 RPR Nonreactive (Nonreactive) 07/17/23 HIV 1&2 Ab & HIV 1 Ag Non-reactive (Non-Reactiv) 07/17/23 TSH 2.14 uIU/mL (0.27-4.20) 07/17/23 C.trachomatis RNA (TMA) Not detected (NOT DETECTED) N.gonorrhoeae RNA (TMA) Not detected (NOT DETECTED) T. vaginalis Amp RNA Not detected (NOT DETECTED) 06/11/23 Chlamydia/GC Comment See note 06/11/23 Cystic Fibrosis Screen Negative 07/17/23 Glucose Tolerance mg/dL 12/08/19 Glucose 1 Hr 50 gm 189 mg/dL (85-140) H 10/09/23 Gest Glucose Tolerance mg/dL 10/11/23 Ser , Semi-Qnt 4207.00 mIU/mL 03/10/21 HCG, Qual Positive (Negative) H 05/03/23 Urine Opiates Screen Negative ng/mL (Negative) 07/17/23 Ur Barbiturates Screen Negative ng/mL (Negative) 07/17/23 Ur Phencyclidine Scrn Negative ng/mL (Negative) 07/17/23 Ur Amphetamines Screen Negative ng/mL (Negative) 07/17/23 U Benzodiazepines Scrn Negative ng/mL (Negative) 07/17/23 Urine Cocaine Screen Negative ng/mL (Negative) 07/17/23 U Marijuana (THC) Screen Negative ng/mL (Negative) 07/17/23 Micro Urine Specimen 10/23/23 Discharge Plan Discharge Patient Disposition: Home Condition: Stable Prescriptions: No Action No Known Home Medications Rx Instructions: Patient's insurance will not approve insulin or diabetes supplies she needs so she is currently not taking anything. Discharge Orders: Discharge Order (Routine); Ordered 12/16/23 Ordered By: Miranda Coronel Discharge Diet: Regular Discharge Activity: Increase activity as tolerated Patient Instructions: Depression (DC), OB WHC, OB Food/Drug Interaction Guide, OB Care at Home, Opioid Safety, OB Proud Parent Packet, Abnormal Bleeding Assessment: 1. S/p primary section for compound presentation 2. Acute blood loss anemia?asymptomatic 3. History of gestational diabetes (no medication) 4. Hepatitis C positive 5. Multigravida (G5, P3) Plan of Treatment: DC to home Follow-up in [address] 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
[2023-12-16 12:31] VITALS: BP 136/95; PULSE 98
[2023-12-16 12:45] VITALS: BP 136/95; PULSE 98
--- NOTE | 2023-12-17 12:55 | ANE.PACU2 ---
Inpatient post-anesthesia follow up: Airway intact: Yes Vital signs: Temperature 96.8 F Pulse Rate 98 Respiratory Rate 16 Blood Pressure 136/95 Pulse Oximetry 96 Oxygen Delivery Me thod Room Air Oxygen Flow Rate Fraction of Inspir ed Oxygen Hydration adequate: Yes Nausea and vomiting: No Pain level: 1 Mental status: Baseline Epidural Start/End: Epidural Start Date: 12/13/23 Epidural Start Time: 17:35 Epidural End Date: 12/14/23 Epidural End Time: 02:50
== END 2023-12-16 12:45 | disposition home or self-care (01) | DRG 786 ==
LOC: OPOB 19:07 → OBGYN 19:07
PROVIDERS: Obstetrics & Gynecology; Admitting Provider Obstetrics & Gynecology; PCP Registered Nurse; Visit Provider Obstetrics & Gynecology
PROC: 10D00Z1 Extraction of Products of Conception, Low, Open Approach (ICD-10-PCS; CPT 59514; principal; 2023-12-14 00:30)
DX: O24.424 Gestational diabetes mellitus in childbirth, insulin controlled (principal); K83.1 Obstruction of bile duct; O26.643 Intrahepatic cholestasis of pregnancy, third trimester; O98.413 Viral hepatitis complicating pregnancy, third trimester; Z3A.37 37 weeks gestation of pregnancy; Z37.0 Single live birth; B19.20 Unspecified viral hepatitis C without hepatic coma; Z91.141 Patient's other noncompliance with medication regimen due to financial hardship; O32.6XX0 Maternal care for compound presentation, not applicable or unspecified
CPT/HCPCS: 36415; 36416; 51702; 59409; 82962; 85025; 85027; 86850; 86900; 96374; 96376; J0330; J1100; J1200; J1885; J2274; J2405; J2590; J2704; J2765; J2795; J3010; J3490; J7030; J7120; J7121